=== PATIENT | female | born 1990 | race Caucasian/White ===

== ENCOUNTER 2019-12-30 16:48 | Inpatient (IN) | payer OTHER, SELFPAY ==
[2019-12-30] MEDS ORDERED: KETOROLAC 30 MG/ML INJ ONE (17:25)
[2019-12-30] MEDS ORDERED: ACETAMINOPHEN 500 MG TAB ONE (17:25)
[2019-12-30] MEDS ORDERED: MORPHINE 2 MG/ML SYR ONE (17:25)
[2019-12-30] MEDS ORDERED: ONDANSETRON 4 MG/2 ML VIAL ONE (17:25)
[2019-12-30] MEDS ORDERED: NA CHLORIDE 0.9% 2,000 ML ONE (17:26)
[2019-12-30 17:36] LABS: Absolute Lymphocytes (CBC) 1.8 K/uL (0.7-4.9); Basophils % 0.3 % (0-1.3); Hematocrit 35.1 % (36.0-45.0); Lymphocytes % 18.9 % (15.3-44.8); MPV 10.1 fL (7.6-11.3); RBC Red Blood Cell Count 4.51 M/uL (3.86-4.86)
[2019-12-30 17:51] LABS: ALT/SGPT 20 U/L (12-78); AST/SGOT 13 U/L (15-37); Albumin 4.1 g/dL (3.4-5.0); Alkaline Phosphatase 77 U/L (45-117); BUN Blood Urea Nitrogen 8 mg/dL (7-18); Bicarbonate 27 mmol/L (21-32); Bilirubin Direct < 0.1 mg/dL (0-0.2); Bilirubin Total 0.3 mg/dL (0.2-1.0); Glucose Level 96 mg/dL (74-106); Lipase 133 U/L (73-393); Potassium 3.5 mmol/L (3.5-5.1); Protein, Total 8.9 g/dL (6.4-8.2); Sodium Level 138 mmol/L (136-145)
--- NOTE | 2019-12-30 18:10 | RAD REPORT ---
EXAM DESCRIPTION: CT - Stone Protocol - 12/30/2019 5:40 pm CLINICAL HISTORY: Abd pain;Flank pain;Fever COMPARISON: CT ABD PELVIS W CONTRAST dated 12/03/2010 TECHNIQUE: Axial 5 mm thick images were obtained without oral or IV contrast. The [id number] span s the entirety of the system including uppermost abdomen and lung bases. All CT scans are performed using dose optimization technique as appropriate and may include automated exposure control or mA/KV adjustment according to patient size. FINDINGS: No hydronephrosis is present and no obstructing ureteral calculi. A 14 millimeter round lo w-density area lateral mid right kidney is believed to be interval enlargement of a small cyst seen i n 2010. No nonobstructing calyx calculi. The patient has moderately pronounced bilateral nephrocalcin osis. This is new from the 2010 comparison. This is not a clinically emergent finding. No suspicious renal masses. Isodense masses and pyelonephritis are not excluded on a stone protocol CT scan. No sig nificant adrenal finding. Urinary bladder is mostly contracted limiting detail. Normal size uterus is seen. IUD is in place appearing well positioned. There is general fullness to t he left ovary without a clearly defined ovarian solid or cystic mass. Right ovary is slightly less pr ominent in size. Imaged portions of the liver, spleen and pancreas show no suspicious findings on non-contrast imaging . No gallbladder or biliary tree abnormality identified. No suspicious bowel findings. Appendix is normal. No active GI process. No hernia, mass or bulky lymphadenopathy noted. No free air, free fluid or inflammatory stranding. No significant bony abnormality. IMPRESSION: No hydronephrosis, obstructing calculus or acute finding identifiable. Patient has moderate severity bilateral nephrocalcinosis that has developed since 2010. This is not o f acute significance. 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 Isodense masses and pyelonephritis are not excluded on stone protocol technique.
--- NOTE | 2019-12-30 18:17 | RAD REPORT ---
EXAM DESCRIPTION: RAD - Chest Single View - 12/30/2019 6:04 pm CLINICAL HISTORY: Abdominal distention;Cough COMPARISON: November 2007 TECHNIQUE: AP portable chest image was obtained 12/30/2019 6:04 pm . FINDINGS: Lungs are clear. Heart and vasculature are normal. No measurable pleural effusion and no p neumothorax. No acute bony abnormality seen. No acute aortic findings suspected. IMPRESSION: No acute cardiopulmonary process.
[2019-12-30] MEDS ORDERED: Levofloxacin500mg IV 500 MG/100 ML BAG IV ONE (18:28)
[2019-12-30] MEDS ORDERED: CEFTRIAXONE/SWI 1gm 1 GM/10 ML SYR ONE (18:28)
--- NOTE | 2019-12-30 18:28 | EDPHYS ---
Physician Documentation [facility] Name: Mary Jane Rodriguez Age: 29 yrs Sex: Female : 1990 Arrival Date: 12/30/2019 Time: 16:54 Bed 4 Private MD: ZACHARIAH Physician Shalom Will HPI: 12/29 17:06 This 29 yrs old Female presents to ER via Ambulatory with complaints of Back zeb Pain, Abdominal Pain. 17:06 The patient presents with pain that is acute, with no known mechanism of injury. The zeb symptoms are located in the low back, left low back and left mid back. Onset: The symptoms/episode began/occurred just prior to arrival, this morning. The pain radiates to the left low back and left mid back. Associated signs and symptoms: The patient has no apparent associated signs or symptoms. The problem was sustained from unknown cause. Modifying factors: The patient symptoms are alleviated by nothing, the patient symptoms are aggravated by any movement. Severity of symptoms: At their worst the symptoms were mild, moderate, in the emergency department the symptoms are unchanged. The patient has not experienced similar symptoms in the past. Historical: - Allergies: 16:58 No Known Allergies; sv - PMHx: 17:51 Kidney stones; sv - PSHx: 16:58 ; sv - Immunization history:: Adult Immunizations unknown. - Family history:: not pertinent. - Social history:: Smoking status: unknown. ROS: 17:06 Eyes: Negative for injury, pain, redness, and discharge, ENT: Negative for injury, zeb pain, and discharge, Neck: Negative for injury, pain, and swelling, Cardiovascular: Negative for chest pain, palpitations, and edema, Respiratory: Negative for shortness of breath, cough, wheezing, and pleuritic chest pain, : Negative for injury, bleeding, discharge, and swelling, MS/Extremity: Negative for injury and deformity, Skin: Negative for injury, rash, and discoloration, Neuro: Negative for headache, weakness, numbness, tingling, and seizure, Psych: Negative for depression, anxiety, suicide ideation, homicidal ideation, and hallucinations, Allergy/Immunology: Negative for hives, rash, and allergies, Endocrine: Negative for neck swelling, polydipsia, polyuria, polyphagia, and marked weight changes, Hematologic/Lymphatic: Negative for swollen nodes, abnormal bleeding, and unusual bruising. 17:06 Constitutional: Positive for body aches, fever. 17:06 Abdomen/GI: Positive for abdominal pain, nausea and vomiting, of the posterior aspect of left lateral abdomen, left upper quadrant and left lower quadrant. 17:06 Back: Positive for pain at rest, flank pain, on the left. Exam: 17:06 Constitutional: This is a well developed, well nourished patient who is awake, alert, zeb and in no acute distress. Head/Face: Normocephalic, atraumatic. Eyes: Pupils equal round and reactive to light, extra-ocular motions intact. Lids and lashes normal. Conjunctiva and sclera are non-icteric and not injected. Cornea within normal limits. Periorbital areas with no swelling, redness, or edema. ENT: Nares patent. No nasal discharge, no septal abnormalities noted. Tympanic membranes are normal and external auditory canals are clear. Oropharynx with no redness, swelling, or masses, exudates, or evidence of obstruction, uvula midline. Mucous membranes moist. Neck: Trachea midline, no thyromegaly or masses palpated, and no cervical lymphadenopathy. Supple, full range of motion without nuchal rigidity, or vertebral point tenderness. No Meningismus. Chest/axilla: Normal chest wall appearance and motion. Nontender with no deformity. No lesions are appreciated. Cardiovascular: Regular rate and rhythm with a normal S1 and S2. No gallops, murmurs, or rubs. Normal PMI, no JVD. No pulse deficits. Respiratory: Lungs have equal breath sounds bilaterally, clear to auscultation and percussion. No rales, rhonchi or wheezes noted. No increased work of breathing, no retractions or nasal flaring. Female : Normal external genitalia. Skin: Warm, dry with normal turgor. Normal color with no rashes, no lesions, and no evidence of cellulitis. MS/ Extremity: Pulses equal, no cyanosis. Neurovascular intact. Full, normal range of motion. Neuro: Awake and alert, GCS 15, oriented to person, place, time, and situation. Cranial nerves II-XII grossly intact. Motor strength 5/5 in all extremities. Sensory grossly intact. Cerebellar exam normal. Normal gait. 17:06 Abdomen/GI: Inspection: abdomen appears normal, Bowel sounds: normal, Palpation: mild abdominal tenderness, moderate abdominal tenderness, in the posterior aspect of left lateral abdomen, anterior aspect of left lateral abdomen, left upper quadrant and left lower quadrant, Liver: no appreciated palpable abnormalities, Hernia: not appreciated. Vital Signs: 16:58 BP 134 / 89; Pulse 126; Resp 20; Temp 101.1(TE); Pulse Ox 99% ; Weight 76.2 kg; Height sv 5 ft. 5 in. (165.10 cm); 18:10 BP 114 / 80; Pulse 110; Resp 18; Temp 99.4(O); Pulse Ox 99% on R/A; Pain 6/10; em 19:30 BP 118 / 76; Pulse 104; Resp 17; Pulse Ox 100% on R/A; rv 20:30 BP 116 / 81; Pulse 105; Resp 16; Temp 99; Pulse Ox 100% on R/A; rv 16:58 Body Mass Index 27.96 (76.20 kg, 165.10 cm) sv MDM: 17:02 Patient medically screened. [facility] 17:09 Differential diagnosis: Fatigue Scoliosis sprain, Ureterolithiasis. Data [facility] reviewed: vital signs, nurses notes, lab test result(s), radiologic studies, CT scan. Data interpreted: pvc monitor: rate is 126 beats/min, rhythm is regular, Pulse oximetry: is not applicable for this patient encounter. Counseling: I had a detailed discussion with the patient and/or guardian regarding: the historical points, exam findings, and any diagnostic results supporting the discharge/admit diagnosis, lab results, radiology results, the need for outpatient follow up. 12/29 17:06 Order name: Basic Metabolic Panel; Complete Time: 18:00 [facility] 12/29 17:06 Order name: CBC with Diff; Complete Time: 17:43 [facility] 12/29 17:06 Order name: Hepatic Function; Complete Time: 18:00 [facility] 12/29 17:06 Order name: Lipase; Complete Time: 18:00 [facility] 12/29 17:06 Order name: Urine Culture [facility] 12/29 17:11 Order name: Blood Culture Adult (2) [facility] 12/29 17:11 Order name: Lactate; Complete Time: 18:00 [facility] 12/29 17:24 Order name: Urine Dipstick--Ancillary (enter results) 12/29 17:24 Order name: Urine --Ancillary (enter results) 12/29 17:25 Order name: Urine Dipstick-Ancillary; Complete Time: 19:15 [facility] 12/29 17:25 Order name: Urine --Ancillary; Complete Time: 19:15 [facility] 12/29 19:47 Order name: Urine Microscopic Only 12/29 19:54 Order name: COVID-19 mw2 12/29 20:17 Order name: Urine Microscopic Only [facility] 12/29 17:06 Order name: IV Saline Lock; Complete Time: 17:33 [facility] 12/29 17:06 Order name: Labs collected and sent; Complete Time: 17:09 [facility] 12/29 17:06 Order name: Urine Dipstick-Ancillary (obtain specimen); Complete Time: 17:22 [facility] 12/29 17:06 Order name: Urine Test (obtain specimen); Complete Time: 17:22 [facility] 12/29 17:06 Order name: CT Stone Protocol; Complete Time: 19:15 [facility] 12/29 17:44 Order name: Chest Single View XRAY; Complete Time: 19:15 [facility] 12/29 18:23 Order name: CT Abd/Pelvis - IV Contrast Only [facility] 12/29 20:34 Order name: Lactate Sepsis 2 HR Follow-up EDMS Administered Medications: 17:20 Drug: Tylenol 1000 mg Route: PO; em 18:32 Follow up: Response: No adverse reaction; Temperature is decreased em 17:25 Drug: TORadol 30 mg Route: IVP; Site: left antecubital; em 17:25 Drug: NS 0.9% 1000 ml Route: IV; Rate: 1 bolus; Site: left antecubital; em 17:25 Drug: NS 0.9% 1000 ml Route: IV; Rate: 1 bolus; Site: left antecubital; em 17:27 Drug: Zofran (Ondansetron) 4 mg Route: IVP; Site: left antecubital; em 17:35 Drug: Rocephin 1 grams Route: IV; Rate: per protocol; Site: left antecubital; em 18:18 Drug: morphine 2 mg Route: IVP; Site: left antecubital; em 18:28 Drug: levofloxacin 500 mg Volume: 100 ml; Route: IVPB; Infused Over: 60 mins; Site: em left antecubital; Disposition: 12/30/19 18:27 Hospitalization ordered by Remy Neely for Inpatient Admission. Preliminary diagnosis are Fever, unspecified, Abdominal tenderness, Acute tubulo-interstitial nephritis - nephrocalcinosis. - Bed requested for Telemetry/MedSurg (Inpatient). - Status is Inpatient Admission. rv - Condition is Fair. - Problem is new. - Symptoms have improved. Signatures: Dispatcher [employer] Anh Meza RN RN sv Shalom Will MD MD cha Munoz, Edgar, RN RN em Garcia, Cindy, RN RN Micah Easton, JENNIE RN rv Corrections: (The following items were deleted from the chart) 17:51 16:58 PMHx: None; [facility] 19:58 18:27 Hospitalization Ordered by Remy Neely for Inpatient Admission. Preliminary diagnosis is Fever, unspecified; Abdominal tenderness; Acute tubulo-interstitial nephritis - nephrocalcinosis. Bed requested for Telemetry/MedSurg (Inpatient). Status is Inpatient Admission. Condition is Fair. Problem is new. Symptoms have improved. [facility] 20:34 19:58 12/30/2019 18:27 Hospitalization Ordered by Remy Neely for Inpatient rv Admission. Preliminary diagnosis is Fever, unspecified; Abdominal tenderness; Acute tubulo-interstitial nephritis - nephrocalcinosis. Bed requested for Telemetry/MedSurg (Inpatient). Status is Inpatient Admission. Condition is Fair. Problem is new. Symptoms have improved. cg
--- NOTE | 2019-12-30 18:28 | ER ---
Nurse's Notes [facility] Name: Mary Jane Rodriguez Age: 29 yrs Sex: Female : 1990 Arrival Date: 12/30/2019 Time: 16:54 Bed 4 Private MD: Diagnosis: Fever, unspecified;Abdominal tenderness;Acute tubulo-interstitial nephritis-nephrocalcinosis Presentation: 12/29 16:57 Chief complaint: Patient states: left low back/flank pain started a week ago, took pain sv meds and it went away. Today she started having the pain again with radiation to the LLQ and fever Tmax 101.4 "I think it's a kidney stone, I've had them before.". Coronavirus screen: Client denies travel out of the [place] in the last 14 days. At this time, the client does not indicate any symptoms associated with coronavirus-19. Ebola Screen: No symptoms or risks identified at this time. Risk Assessment: Do you want to hurt yourself or someone else? Patient reports no desire to harm self or others. Onset of symptoms was December 30, 2019. 16:57 Method Of Arrival: Ambulatory sv 16:57 Acuity: BAILEY 2 sv 16:58 Initial Sepsis Screen: Does the patient meet any 2 criteria? Temp <36.0*C (96.8*F)) or sv > 38.3*C (100.9*F). HR > 90 bpm. Yes Does the patient have a suspected source of infection? Yes: Other: fever. Triage Assessment: 16:57 General: Appears in no apparent distress. uncomfortable, Behavior is cooperative, sv anxious. Pain: Complains of pain in posterior aspect of left lateral abdomen and anterior aspect of left lateral abdomen Pain radiates to left lower quadrant. Neuro: Level of Consciousness is awake, alert, obeys commands, Oriented to person, place, time, situation, Gait is steady. Respiratory: Respiratory effort is even, unlabored. Historical: - Allergies: 16:58 No Known Allergies; sv - PMHx: 17:51 Kidney stones; sv - PSHx: 16:58 ; sv - Immunization history:: Adult Immunizations unknown. - Family history:: not pertinent. - Social history:: Smoking status: unknown. Screenin:15 Abuse screen: Denies threats or abuse. Nutritional screening: No deficits noted. em Tuberculosis screening: No symptoms or risk factors identified. Fall Risk None identified. Assessment: 17:03 Reassessment: CODE SEPSIS CALLED. hb 17:15 General: Appears in no apparent distress. comfortable, Behavior is calm, cooperative, em appropriate for age, Reports fever for 12-24 hours. Pain: Complains of pain in back Pain radiates to abdomen Pain Pain began 2-3 days ago. Neuro: Level of Consciousness is awake, alert, obeys commands, Oriented to person, place, time, situation, Appropriate for age. Cardiovascular: Capillary refill < 3 seconds Patient's skin is warm and dry. Respiratory: Airway is patent Respiratory effort is even, unlabored, Respiratory pattern is regular, symmetrical. GI: Reports nausea, Patient currently denies diarrhea, vomiting. : Denies burning with urination. Derm: Skin is intact, is healthy with good turgor, Skin is pink, warm \\T\\ dry. Musculoskeletal: Capillary refill < 3 seconds, Range of motion: intact in all extremities. 17:30 Reassessment: wants to hold off on morphine, will reassess pain in 15-30 minutes. em 18:10 Reassessment: Patient appears in no apparent distress at this time. Patient and/or em family updated on plan of care and expected duration. Pain level reassessed. Patient is alert, oriented x 3, equal unlabored respirations, skin warm/dry/pink. rates pain 6/10. 18:30 Reassessment: MATY Pickett at bedside discussing POC. em 20:30 Reassessment: PATEINT REFUSED COVID TEST. rv Vital Signs: 16:58 BP 134 / 89; Pulse 126; Resp 20; Temp 101.1(TE); Pulse Ox 99% ; Weight 76.2 kg; Height sv 5 ft. 5 in. (165.10 cm); 18:10 BP 114 / 80; Pulse 110; Resp 18; Temp 99.4(O); Pulse Ox 99% on R/A; Pain 6/10; em 19:30 BP 118 / 76; Pulse 104; Resp 17; Pulse Ox 100% on R/A; rv 20:30 BP 116 / 81; Pulse 105; Resp 16; Temp 99; Pulse Ox 100% on R/A; rv 16:58 Body Mass Index 27.96 (76.20 kg, 165.10 cm) sv ED Course: 16:54 Patient arrived in ED. mr 16:57 Arm band placed on. sv 16:58 Triage completed. sv 17:02 Shalom Will MD is Attending Physician. zeb 17:05 Liang Vila, RN is Primary Nurse. em 17:12 Radiology exam delayed due to test not completed at this time. vm2 17:15 Patient has correct armband on for positive identification. Placed in gown. Bed in low em position. Call light in reach. Adult w/ patient. Pulse ox on. NIBP on. 17:20 Urine collected: clean catch specimen, clear. sv 17:25 Initial lab(s) drawn, by me, sent to lab. Inserted saline lock: 20 gauge in left em antecubital area, using aseptic technique. Blood collected. 17:28 Urine --Ancillary (enter results) Sent. sv 17:28 Urine Dipstick--Ancillary (enter results) Sent. sv 17:40 CT Stone Protocol In Process Unspecified. EDMS 18:04 Chest Single View XRAY In Process Unspecified. EDMS 18:24 Marques Cameron DO is Hospitalizing Provider. zeb 18:24 Remy Neely is Hospitalizing Provider. zeb 18:43 CT Abd/Pelvis - IV Contrast Only In Process Unspecified. EDMS 19:34 Primary Nurse role handed off by Liang Vila, RN mw2 19:46 Micah Easton, JENNIE is Primary Nurse. rv 20:17 No provider procedures requiring assistance completed. Maintain EMS IV. Dressing rv intact. Good blood return noted. Site clean \\T\\ dry. 20:30 IV is patent, with fluids infusing freely, Patient admitted, IV remains in place. rv Administered Medications: 17:20 Drug: Tylenol 1000 mg Route: PO; em 18:32 Follow up: Response: No adverse reaction; Temperature is decreased em 17:25 Drug: TORadol 30 mg Route: IVP; Site: left antecubital; em 17:25 Drug: NS 0.9% 1000 ml Route: IV; Rate: 1 bolus; Site: left antecubital; em 17:25 Drug: NS 0.9% 1000 ml Route: IV; Rate: 1 bolus; Site: left antecubital; em 17:27 Drug: Zofran (Ondansetron) 4 mg Route: IVP; Site: left antecubital; em 17:35 Drug: Rocephin 1 grams Route: IV; Rate: per protocol; Site: left antecubital; em 18:18 Drug: morphine 2 mg Route: IVP; Site: left antecubital; em 18:28 Drug: levofloxacin 500 mg Volume: 100 ml; Route: IVPB; Infused Over: 60 mins; Site: em left antecubital; Outcome: 18:27 Decision to Hospitalize by Provider. [facility] 20:30 Admitted to Med/surg accompanied by tech, via wheelchair, room 206, Other SBAR Report rv called to SNEHA SCHNEIDER 20:30 Instructed on the need for admit. 20:30 Condition: good rv 20:30 Discharge instructions given to patient. rv 20:34 Patient left the ED. rv Signatures: Dispatcher [employer] Anh Meza RN RN Shalom Will MD MD cha Rivera, Liang Mott RN RN Awa Courtney RN RN Gavi Torres [facility] Cannon [facility] Micah Easton RN RN rv Corrections: (The following items were deleted from the chart) 17:00 16:57 Chief complaint: Patient states: left low back/flank pain started a week ago, sv took pain meds and it went away. Today she started having the pain again with radiation to the LLQ. 17: 16:57 Acuity: BAILEY 3 sv 17: 16:58 Initial Sepsis Screen: Does the patient meet any 2 criteria? No. Patient's sv initial sepsis screen is negative. Does the patient have a suspected source of infection? No. Patient's initial sepsis screen is negative. sv 17: 16:58 Pulse Ox 99%; Temp 101.1F Temporal; 76.2 kg; Height 5 ft. 5 in.; BMI: 27.9; sv sv 17:04 16:57 Chief complaint: Patient states: left low back/flank pain started a week ago, sv took pain meds and it went away. Today she started having the pain again with radiation to the LLQ and fever Tmax 101.4 sv 17: 16:58 Initial Sepsis Screen: Does the patient meet any 2 criteria? Temp <36.0*C sv (96.8*F)) or > 38.3*C (100.9*F). HR > 90 bpm. No. Patient's initial sepsis screen is negative. Does the patient have a suspected source of infection? Yes: Other: fever sv 17:51 16:58 PMHx: None; sv sv : 21:28 Admitted to Med/surg accompanied by tech, via wheelchair, room 206, Other SBAR rv Report called to SNEHA SCHNEIDER rv 21: Instructed on the need for admit, rv rv 21:28 Condition: good rv rv
[2019-12-30 18:50] LABS: Urine Blood TRACE (NEG); Urine Glucose NEGATIVE (NEG); Urine Protein NEGATIVE (NEG)
--- NOTE | 2019-12-30 19:15 | RAD REPORT ---
EXAM DESCRIPTION: CT - Abdomen Pelvis W Contrast - 12/30/2019 6:44 pm CLINICAL HISTORY: ABD PAIN COMPARISON: No comparisons TECHNIQUE: Biphasic, helical CT imaging of the abdomen and pelvis was performed following 100 ml non -ionic IV contrast. No oral contrast administered. All CT scans are performed using dose optimization technique as appropriate and may include automated exposure control or mA/KV adjustment according to patient size. FINDINGS: No suspicious findings in the lung bases. The liver, spleen, and pancreas show no suspicious findings. Gallbladder and biliary tree are also wi thout suspicious finding. Decreased enhancement is present in the posterior mid to upper pole left kidney. No similar finding o n the right. A 19 millimeter right renal cyst is present mid right kidney. No hydronephrosis. No obst ructing or nonobstructing calculi. No solid mass lesion identifiable. No bladder abnormalities. No ad renal abnormalities. No acute uterine finding. IUD is in place. Fullness is present in the left ovary relative to the right. This is probably due to the presence of 1 or more cysts. A solid mass or enha ncing mass of the left ovary is not confirmed. No dilated bowel loops or bowel wall thickening. Appendix is normal. No free air, free fluid or infla mmatory stranding. No hernia, mass or bulky lymphadenopathy. No suspicious bony findings. IMPRESSION: Mild left-sided acute pyelonephritis. No hydronephrosis, obstructing calculus or other acute GI finding. Generalized fullness of the left ovary relative to the right. This may be due to 1 or more cysts. Sig nificant left ovarian process is unlikely.
[2019-12-30 20:17] LABS: Urine Bacteria <20 /HPF (<20); Urine Culture Reflex Order NOT NEEDED; Urine Mucus 1+ /HPF (NONE SEEN); Urine RBC <5 /HPF (NONE SEEN)
[2019-12-30 20:51] VITALS: BMI 28.6
--- NOTE | 2019-12-30 20:57 | P.HP ---
Certification for Inpatient Patient admitted to: Inpatient With expected LOS: >2 Midnights Patient will require the following post-hospital care: None Practitioner: I am a practitioner with admitting privileges, knowledge of patient current condition, hospital course, and medical plan of care. Services: Services provided to patient in accordance with Admission requirements found in Title 42 Section 412.3 of the Code of Federal Regulations <JasminePiyush torres - Last Filed: 12/30/19 20:55> Patient History Date of Service: 12/30/19 Primary Care Provider: None Reason for admission: Pyelonephritis History of Present Illness: 29-year-old female with history kidneys stones presents emergency department with left abdomen/flank pain and fever. Patient reports that last week she had left-sided back, flank pain that went on for approximately 2 days and then resolved, she states that this pain was similar to when she had kidney stone in the past. Over the course of the last 2 days she developed new left flank pain and began having chills, started with fever yesterday. Patient was evaluated in the emergency department, labs hemoglobin 11.1, hematocrit 35.1, white blood cell count 9.5 lactic acid 2.2 but decreased to 0.7 after fluids, urine microscopic shows 5-10 white blood cells but also 5-10 squamous epithelial cells. Trace blood and trace leukocytes on urine dip. Patient had CT abdomen pelvis both with and without contrast which showed moderate severity bilateral nephrocalcinosis in addition to a 14 mm round low density area lateral to the mid right kidney believed to be an interval enlargement of a small cyst that was seen in 2010. On CT with contrast patient noted to have mild left-sided acute pyelonephritis. No hydronephrosis, obstructing cactus or other acute GI findings noted. ED provider wishes to admit patient for further evaluation and management peer When I saw the patient in the emergency department she is awake, alert, oriented x3. Patient complaining of left-sided flank and abdominal pain. Mild lower abdominal tenderness, no CVA tenderness noted. - Past Medical/Surgical History Has patient received pneumonia vaccine in the past: No Diabetic: No -: kidney stones -: x3 Psychosocial/ Personal History: Patient lives with the family - Family History Mother -: Hypertension - Social History Smoking Status: Never smoker Alcohol use: Yes CD- Drugs: No Caffeine use: No Place of Residence: Home <Piyush Reina - Last Filed: 12/30/19 20:55> Date of Service: 12/31/19 <brittney mooney - Last Filed: 12/31/19 17:02> Allergies No Known Allergies Allergy (Verified 12/30/19 20:38) Home Medications: NK [No Home Meds] 12/30/19 Review of Systems 10-point ROS is otherwise unremarkable Gastrointestinal: Nausea, Abdominal Pain, Other (Flank pain, back pain), As per HPI <Piyush Reina - Last Filed: 12/30/19 20:55> Physical Examination - Vital Signs Temperature: 97.4 F Blood Pressure: 112/64 Pulse: 87 Respirations: 16 Pulse Ox (%): 97 - Physical Exam General: Alert, In no apparent distress HEENT: Atraumatic, PERRLA, Mucous membr. moist/pink Neck: Supple, 2+ carotid pulse no bruit, No LAD Respiratory: Clear to auscultation bilaterally, Normal air movement Cardiovascular: Regular rate/rhythm, Normal S1 S2 Gastrointestinal: Normal bowel sounds, Tenderness (Mild lower abdominal tenderness, no CVA tenderness noted.) Musculoskeletal: No tenderness Integumentary: No rashes Neurological: Normal gait, Normal speech, Normal strength at 5/5 x4 extr, Normal tone, Normal affect - Studies Laboratory Data (last 24 hrs) 12/30/19 17:23: WBC 9.5, Hgb 11.1 L, Hct 35.1 L, Plt Count 330 12/30/19 17:23: Sodium 138, Potassium 3.5, BUN 8, Creatinine 0.92, Glucose 96, Total Bilirubin 0.3, AST 13 L, ALT 20, Alkaline Phosphatase 77, Lipase 133 <Piyush Reina - Last Filed: 12/30/19 20:55> - Studies Laboratory Data (last 24 hrs) 12/30/19 17:23: WBC 9.5, Hgb 11.1 L, Hct 35.1 L, Plt Count 330 12/30/19 17:23: Sodium 138, Potassium 3.5, BUN 8, Creatinine 0.92, Glucose 96, Total Bilirubin 0.3, AST 13 L, ALT 20, Alkaline Phosphatase 77, Lipase 133 <brittney mooney - Last Filed: 12/31/19 17:02> Assessment and Plan - Plan Assessment Left-sided acute pyelonephritis Plan Left-sided acute pyelonephritis: Continue with IV Rocephin, p.r.n. pain and nausea medications. Blood and urine cultures obtained. Clear liquids at this time, advanced as tolerated. DVT prophylaxis Lovenox 40 mg subcutaneous once daily. Discharge Plan: Home Plan to discharge in: 24 Hours - Advance Directives Does patient have a Living Will: No Does patient have a Durable POA for Healthcare: No - Code Status/Comfort Care Code Status Assessed: Yes (Full code) Critical Care: No Time Spent Managing Pts Care (In Minutes): 55 <Piyush Reina - Last Filed: 12/30/19 20:55> - Problems (Diagnosis) (1) Acute pyelonephritis Current Visit: Yes Status: Acute (2) Nephrocalcinosis Current Visit: Yes Status: Acute Physician Review: Patient Assessed, Agree with Above Assessment and Plan Physician Review Additional Text: Acute pyelonephritis. Nephrocalcinosis. IV Rocephin. Supportive measures-IV hydration and pain management as needed. Follow cultures. <brittney mooney - Last Filed: 12/31/19 17:02>
[2019-12-30] MEDS ORDERED: PROMETHAZINE INJ 25 MG/ML AMP IV PRN (21:12)
[2019-12-30] MEDS ORDERED: HYDROCODONE/APAP 7.5/325 MG TAB PO PRN (21:12)
[2019-12-30] MEDS ORDERED: ONDANSETRON 4 MG/2 ML VIAL IV PRN (21:12)
[2019-12-30] MEDS ORDERED: MORPHINE 2 MG/ML SYR IV PRN (21:12)
[2019-12-30] MEDS: NA CHLORIDE 0.9% 1,000 ML IV SCH (21:37)
[2019-12-31] MEDS: NA CHLORIDE 0.9% 1,000 ML IV SCH ×3 (03:27→17:01)
[2019-12-31 05:16] LABS: ALT/SGPT 12 U/L (12-78); AST/SGOT 9 U/L (15-37); Albumin 2.7 g/dL (3.4-5.0); Alkaline Phosphatase 51 U/L (45-117); BUN Blood Urea Nitrogen 7 mg/dL (7-18); Bicarbonate 28 mmol/L (21-32); Bilirubin Total 0.3 mg/dL (0.2-1.0); Glucose Level 86 mg/dL (74-106); Magnesium 2.1 mg/dL (1.8-2.4); Protein, Total 6.1 g/dL (6.4-8.2); Sodium Level 144 mmol/L (136-145)
[2019-12-31 06:00] LABS: Absolute Lymphocytes (CBC) 1.4 K/uL (0.7-4.9); Basophils % 0.4 % (0-1.3); Hematocrit 26.2 % (36.0-45.0); Lymphocytes % 28.6 % (15.3-44.8); MPV 10.1 fL (7.6-11.3); RBC Red Blood Cell Count 3.36 M/uL (3.86-4.86)
[2019-12-31] MEDS: ACETAMINOPHEN 500 MG TAB PO PRN ×2 (08:27→20:47)
[2019-12-31] MEDS: ENOXAPARIN 40 MG/0.4 ML SQ SCH (08:28)
[2019-12-31] MEDS ORDERED: CEFTRIAXONE 1 GM/NS 50 ML 1 GM/50 ML BAG IV SCH (09:00)
[2019-12-31 10:04] VITALS: O2SAT 100
--- NOTE | 2019-12-31 14:40 | P.PN ---
Subjective Date of Service: 12/31/19 Primary Care Provider: None Chief Complaint: Pyelonephritis Patient complaining of lower back pain. Urine culture is growing Gram negative rods. She has been afebrile. Blood pressure is soft and patient is borderline hypotensive. Physical Examination - Vital Signs Temperature: 97.8 F Blood Pressure: 90/62 Pulse: 75 Respirations: 16 Pulse Ox (%): 100 - Physical Exam General: Alert, In no apparent distress, Oriented x3 HEENT: Mucous membr. moist/pink Neck: Supple, JVD not distended Respiratory: Clear to auscultation bilaterally, Normal air movement Cardiovascular: No edema, Regular rate/rhythm, Normal S1 S2 Capillary refill: <2 Seconds Gastrointestinal: Normal bowel sounds, Soft and benign, Non-distended Musculoskeletal: Tenderness (Lower back.) Integumentary: No rashes, No erythema Neurological: Other (Nonfocal.) - Studies Laboratory Data (last 24 hrs) 12/30/19 17:23: WBC 9.5, Hgb 11.1 L, Hct 35.1 L, Plt Count 330 12/30/19 17:23: Sodium 138, Potassium 3.5, BUN 8, Creatinine 0.92, Glucose 96, Total Bilirubin 0.3, AST 13 L, ALT 20, Alkaline Phosphatase 77, Lipase 133 Assessment And Plan - Current Problems (Diagnosis) (1) Acute pyelonephritis Current Visit: Yes Status: Acute (2) Nephrocalcinosis Current Visit: Yes Status: Acute - Plan Continue IV Rocephin. IV hydration Pain management as needed. Follow urine culture for organism identification and sensitivity. Advanced diet as tolerated.
[2019-12-31] MEDS ORDERED: CEFTRIAXONE/SWI 1gm 1 GM/10 ML SYR IV SCH (18:00)
[2020-01-01] MEDS: NA CHLORIDE 0.9% 1,000 ML IV SCH ×2 (01:34→06:02)
[2020-01-01] MEDS ORDERED: CODEINE 30MG/APAP 300MG TAB PO PRN (02:12)
[2020-01-01 04:27] LABS: Absolute Lymphocytes (CBC) 1.6 K/uL (0.7-4.9); Basophils % 0.5 % (0-1.3); Hematocrit 27.6 % (36.0-45.0); Lymphocytes % 29.8 % (15.3-44.8); MPV 10.6 fL (7.6-11.3); RBC Red Blood Cell Count 3.54 M/uL (3.86-4.86)
[2020-01-01 05:34] LABS: ALT/SGPT 12 U/L (12-78); AST/SGOT 9 U/L (15-37); Alkaline Phosphatase 50 U/L (45-117); BUN Blood Urea Nitrogen 6 mg/dL (7-18); Bicarbonate 28 mmol/L (21-32); Bilirubin Total 0.2 mg/dL (0.2-1.0); Glucose Level 86 mg/dL (74-106); Magnesium 2.2 mg/dL (1.8-2.4); Potassium 3.7 mmol/L (3.5-5.1); Protein, Total 6.6 g/dL (6.4-8.2); Sodium Level 144 mmol/L (136-145)
[2020-01-01] MEDS ORDERED: POTASSIUM CL SA 10 MEQ TAB PO ONE (05:35)
[2020-01-01] MEDS: ENOXAPARIN 40 MG/0.4 ML SQ SCH (07:39)
[2020-01-01 08:44] VITALS: BP 128/74; TEMP 97.6
--- NOTE | 2020-01-01 08:46 | P.DS ---
Admission Date: 12/30/19 Discharge Date: 01/01/20 Primary Care Provider: None Disposition: ROUTINE DISCHARGE Discharge Condition: FAIR Reason for Admission: Pyelonephritis - Problems (1) Acute pyelonephritis Status: Acute (2) Nephrocalcinosis Status: Acute Brief History of Present Illness: 29 year old woman with a history nephrocalcinosis presented to the emergency department with a complaint of left flank pain with associated fever and chills. UA suggested some evidence of UTI. CT abdomen and pelvis done demonstrated bilateral nephrocalcinosis, mild left pyelonephritis and right renal cyst. It also reported Patient had no leukocytosis or fever. She was hospitalized for further management Hospital Course: Patient admitted to the medical floor and treated with IV Rocephin. Urine culture grew pansensitive E. coli. Patient's symptoms resolved rapidly than anticipated. Today patient denies any symptoms. She has been afebrile, has no leukocytosis, tolerating her meals. Noted she has anemia. Patient reports irregular and heavy menstrual bleed which could explain the microcytic anemia. She is prescribed ciprofloxacin to continue treatment for the complicated UTI. She is also prescribed iron supplement pain and advised to follow up with a scale mechanic regarding her menstrual bleed and also a PCP will monitor her nephrocalcinosis. Vital Signs/Physical Exam: Temp Pulse Resp BP Pulse Ox 97.6 F 91 H 20 128/74 98 01/01/20 08:00 01/01/20 08:00 01/01/20 08:00 01/01/20 08:00 01/01/20 08:00 General: Alert, In no apparent distress, Oriented x3 HEENT: Mucous membr. moist/pink Neck: Supple, JVD not distended Respiratory: Clear to auscultation bilaterally, Normal air movement Cardiovascular: No edema, Regular rate/rhythm, Normal S1 S2 Gastrointestinal: Normal bowel sounds, Soft and benign, No tenderness Musculoskeletal: No swelling, No erythema Integumentary: No rashes Neurological: Normal strength at 5/5 x4 extr Laboratory Data at Discharge: WBC 5.4 K/uL (4.3-10.9) 01/01/20 03:30 Hgb 8.7 g/dL (12.0-15.0) L 01/01/20 03:30 Hct 27.6 % (36.0-45.0) L 01/01/20 03:30 Plt Count 228 K/uL (152-406) 01/01/20 03:30 Sodium 144 mmol/L (136-145) 01/01/20 03:30 Potassium 3.7 mmol/L (3.5-5.1) 01/01/20 03:30 BUN 6 mg/dL (7-18) L 01/01/20 03:30 Creatinine 0.64 mg/dL (0.55-1.3) 01/01/20 03:30 Glucose 86 mg/dL (74-106) 01/01/20 03:30 Magnesium 2.2 mg/dL (1.8-2.4) 01/01/20 03:30 Total Bilirubin 0.2 mg/dL (0.2-1.0) 01/01/20 03:30 AST 9 U/L (15-37) L 01/01/20 03:30 ALT 12 U/L (12-78) 01/01/20 03:30 Alkaline Phosphatase 50 U/L (45-117) 01/01/20 03:30 Lipase 133 U/L (73-393) 12/30/19 17:23 Home Medications: Ciprofloxacin HCl [Cipro 500 MG Tablet] 500 mg PO BID #14 tab 01/01/20 Ferrous Gluconate 324 mg PO BID #60 tablet 01/01/20 New Medications: Ciprofloxacin HCl [Cipro 500 MG Tablet] 500 mg PO BID #14 tab Ferrous Gluconate 324 mg PO BID #60 tablet Diet: Regular Activity: Ad ame Followup: NONE,NONE [Primary Care Provider] - 1-2 Weeks
== END 2020-01-01 09:40 | disposition home or self-care (01) | DRG 690 ==
LOC: ER 16:48 → ERHOLD 19:45 → 2ND 20:17
PROVIDERS: ADMIT Internal Medicine; ATTEND Internal Medicine
DX: N10 Acute pyelonephritis (principal); E83.59 Other disorders of calcium metabolism; N29 Other disorders of kidney and ureter in diseases classified elsewhere; N28.1 Cyst of kidney, acquired; D50.9 Iron deficiency anemia, unspecified; B96.20 Unspecified Escherichia coli [E. coli] as the cause of diseases classified elsewhere; Z79.899 Other long term (current) drug therapy
CPT/HCPCS: 36415; 71045; 74176; 74177; 76377; 80048; 80053; 80076; 81003; 81015; 81025; 83605; 83690; 83735; 85025; 87040; 87086; 87088; 96374; 96375; 99285; J0696; J1650; J2270; J2405; J7030; Q9967

== ENCOUNTER 2020-06-09 19:42 | Emergency (ER) | payer SELFPAY ==
--- OUTSIDE RECORDS SUMMARY | 2020-06-09 19:45 | XMS REPORT | Continuity of Care Document ---
:1990 Author Organization [facility] t Address [address] [place] [address] Care Team Providers Name Role Phone Fletcher PATEL Attending Clinician Problems This patient has no known problems. Allergies, Adverse Reactions, Alerts This patient has no known allergies or adverse reactions. Medications This patient has no known medications. Procedures This patient has no known procedures. Encounters Start End Encounter Admission Attending Care Care Encounter Source Date/Time Date/Time Type Type Clinicians Facility Department ID 2020-04-16 2020-04-16 Office SABA Bynum [id number] 10:38:02 11:34:29 Visit Mae AYALA [id number] [place] [id number] [place] [phone] [facility] Results This patient has no known results.
[2020-06-09] MEDS ORDERED: ACETAMINOPHEN 500 MG TAB ONE (20:16)
[2020-06-09 21:30] LABS: Absolute Lymphocytes (CBC) 1.5 K/uL (0.7-4.9); Basophils % 0.5 % (0-1.3); Hematocrit 36.2 % (36.0-45.0); MPV 10.6 fL (7.6-11.3); RBC Red Blood Cell Count 4.04 M/uL (3.86-4.86)
[2020-06-09 21:39] LABS: Urine Blood Trace-intact (Negative); Urine Glucose Negative (Negative); Urine Protein 1+ (Negative)
[2020-06-09 21:49] LABS: ALT/SGPT 17 U/L (12-78); AST/SGOT 10 U/L (15-37); Alkaline Phosphatase 68 U/L (45-117); BUN Blood Urea Nitrogen 7 mg/dL (7-18); Bicarbonate 24 mmol/L (21-32); Bilirubin Direct 0.2 mg/dL (0-0.2); Bilirubin Total 0.9 mg/dL (0.2-1.0); Glucose Level 91 mg/dL (74-106); Lipase 70 U/L (73-393); Potassium 3.4 mmol/L (3.5-5.1); Protein, Total 8.2 g/dL (6.4-8.2); Sodium Level 136 mmol/L (136-145)
[2020-06-09] MEDS ORDERED: KETOROLAC 30 MG/ML INJ ONE (23:53)
--- NOTE | 2020-06-09 23:53 | ER ---
Nurse's Notes [facility] Name: Mary Jane Rodriguez Age: 30 yrs Sex: Female : 1990 Arrival Date: 06/09/2020 Time: 19:45 Bed 19 Private MD: Diagnosis: Lower abdominal pain, unspecified;Urinary tract infection, site not specified Presentation: 06/09 19:50 Chief complaint: Patient states: Suprapubic pain since yesterday, fever. Denies N/V/D. ca1 Denies urinary S/S. HX of PCOS, cyst on kidneys. Coronavirus screen: Client denies travel out of the [place] in the last 14 days. fever, Client presents with at least one sign or symptom that may indicate coronavirus-19. Standard/surgical mask placed on the client. Provider contacted for isolation considerations. Ebola Screen: Patient negative for fever greater than or equal to 101.5 degrees Fahrenheit, and additional compatible Ebola Virus Disease symptoms Patient denies exposure to infectious person. Patient denies travel to an Ebola-affected area in the 21 days before illness onset. No symptoms or risks identified at this time. Initial Sepsis Screen: Does the patient meet any 2 criteria? No. Patient's initial sepsis screen is negative. Does the patient have a suspected source of infection? No. Patient's initial sepsis screen is negative. Risk Assessment: Do you want to hurt yourself or someone else? Patient reports no desire to harm self or others. Onset of symptoms was June 09, 2020. 19:50 Method Of Arrival: Ambulatory ca1 19:50 Acuity: [place] 2 ca1 [place] GUIDE: 19:54 [facility] 05/25/2020 ca1 Historical: - Allergies: 19:54 No Known Allergies; ca1 - PMHx: 19:54 Kidney stones; Cyst on kidneys; PCOS; ca1 - PSHx: 19:54 ; ca1 - Immunization history:: Client reports having NOT received the Covid vaccine. Flu vaccine is not up to date. - Social history:: Smoking status: Patient/guardian denies using tobacco, the patient reports quitting approximately 10 years ago. Screenin:50 Abuse screen: Denies threats or abuse. Nutritional screening: No deficits noted. jb4 Tuberculosis screening: No symptoms or risk factors identified. Fall Risk None identified. Assessment: 20:50 General: Appears in no apparent distress. uncomfortable, Behavior is calm, cooperative, jb4 appropriate for age. Pain: Complains of pain in abdomen Pain does not radiate. Pain currently is 8 out of 10 on a pain scale. Neuro: Level of Consciousness is awake, alert, obeys commands, Oriented to person, place, time, situation. Cardiovascular: Patient's skin is warm and dry. Respiratory: Airway is patent Respiratory effort is even, unlabored, Respiratory pattern is regular, symmetrical. GI: Abdomen is flat, non-distended, Bowel sounds present X 4 quads. Abd is soft X 4 quads Abdomen is tender to palpation X 4 quads. : No signs and/or symptoms were reported regarding the genitourinary system. EENT: No signs and/or symptoms were reported regarding the EENT system. Derm: Skin is intact, Skin is pink, warm \T\ dry. Musculoskeletal: Circulation, motion, and sensation intact. Range of motion: intact in all extremities. 22:00 Reassessment: Patient appears in no apparent distress at this time. Patient and/or jb4 family updated on plan of care and expected duration. Pain level reassessed. Patient is alert, oriented x 3, equal unlabored respirations, skin warm/dry/pink. PT reports pain has decreased to 4/10 Patient states feeling better. 23:00 Reassessment: Patient appears in no apparent distress at this time. Patient and/or jb4 family updated on plan of care and expected duration. Pain level reassessed. Patient is alert, oriented x 3, equal unlabored respirations, skin warm/dry/pink. 06/10 00:19 Reassessment: Patient appears in no apparent distress at this time. Patient and/or jb4 family updated on plan of care and expected duration. Pain level reassessed. Patient is alert, oriented x 3, equal unlabored respirations, skin warm/dry/pink. Vital Signs: 06/09 19:50 BP 124 / 85; Pulse 140; Resp 18 S; Temp 100.3(O); Pulse Ox 99% on R/A; Weight 71.67 kg ca1 (R); Height 5 ft. 5 in. (165.10 cm) (R); Pain 8/10; 21:30 BP 124 / 81; Pulse 105; Resp 18; Pulse Ox 97% on R/A; jb4 21:52 Temp 98.2(O); jb4 23:15 BP 112 / 79; Pulse 102; Resp 16; Pulse Ox 98% on R/A; jb4 06/10 00:00 BP 109 / 76; Pulse 88; Resp 16; Pulse Ox 97% on R/A; jb4 06/09 19:50 Body Mass Index 26.29 (71.67 kg, 165.10 cm) ca1 ED Course: 06/09 19:45 Patient arrived in ED. bp1 19:53 Triage completed. ca1 19:54 Arm band placed on right wrist. ca1 20:50 Patient has correct armband on for positive identification. Bed in low position. Call jb4 light in reach. Side rails up X 1. Pulse ox on. NIBP on. 20:56 Ant Pate, JENNIE is Primary Nurse. jb4 20:57 Artemio Centeno PA is PHCP. jm 20:57 Shalom Will MD is Attending Physician. jmm 21:05 Inserted saline lock: 20 gauge in right forearm, using aseptic technique. Blood ds4 collected. 21:50 Radiology exam delayed due to test not completed at this time. vm2 22:10 US Transvaginal Study (Probe) In Process Unspecified. EDMS 22:52 CT Abd/Pelvis - IV Contrast Only In Process Unspecified. EDMS 06/10 00:21 No provider procedures requiring assistance completed. IV discontinued, intact, jb4 bleeding controlled, No redness/swelling at site. Pressure dressing applied. Administered Medications: 06/09 19:59 Drug: Tylenol 1000 mg Route: PO; ca1 21:52 Follow up: Response: No adverse reaction; Marked relief of symptoms; Temperature is jb4 decreased 23:50 Drug: Ketorolac 30 mg Route: IVP; Site: right antecubital; jb4 06/10 00:09 Follow up: Response: No adverse reaction; Marked relief of symptoms jb4 06/09 23:51 Drug: Rocephin (cefTRIAXone) 1 grams Route: IV; Rate: calculated rate; Site: right jb4 antecubital; 06/10 00:09 Follow up: Response: No adverse reaction; IV Status: Completed infusion; IV Intake: [id number] Intake: 00:09 IV: 10ml; Total: 10ml. jb4 Outcome: 06/09 23:52 Discharge ordered by MD. sandy 06/10 00:21 Discharged to home ambulatory. jb4 Condition: stable Discharge instructions given to patient, Instructed on discharge instructions, follow up and referral plans. medication usage, Demonstrated understanding of instructions, follow-up care, medications, Prescriptions given X 3. 00:22 Patient left the ED. jb4 Signatures: Dispatcher [employer] EDMS Artemio Centeno PA PA jmm Swanson, Donovan ds4 Ant Pate RN RN jb4 Gavi Torres 2 Krysta Reaves, RN RN ca1 Nat Hurst bp1 Corrections: (The following items were deleted from the chart) 06/09 21:52 21:30 BP 124 / 81; Pulse 105bpm; Resp 48bpm; Pulse Ox 97% RA; jb4 jb4
--- NOTE | 2020-06-09 23:53 | EDPHYS ---
Physician Documentation [facility] Name: Mary Jane Rodriguez Age: 30 yrs Sex: Female : 1990 Arrival Date: 06/09/2020 Time: 19:45 Bed 19 Private MD: Shalom Harding HPI: 06/09 21:33 This 30 yrs old Female presents to ER via Ambulatory with complaints of jmm Abdominal Pain, Fever. 21:33 The patient presents with abdominal pain. Onset: The symptoms/episode began/occurred jmm gradually, 1 day(s) ago. The symptoms do not radiate. Associated signs and symptoms: Pertinent negatives: nausea and vomiting, diarrhea. The symptoms are described as achy. Modifying factors: The symptoms are alleviated by nothing, the symptoms are aggravated by nothing. Patient complains of lower abdominal/[pelvic pain beginning 1 day ago with fever, denies abnormal vaginal discharge. 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 Flu vaccine is not up to date. - Social history:: Smoking status: Patient/guardian denies using tobacco, the patient reports quitting approximately 10 years ago. ROS: 21:33 Constitutional: Negative for fever, chills, and weight loss, Cardiovascular: Negative jmm for chest pain, palpitations, and edema, Respiratory: Negative for shortness of breath, cough, wheezing, and pleuritic chest pain. 21:33 Abdomen/GI: Positive for abdominal pain. 21:33 All other systems are negative. Exam: 21:33 Constitutional: This is a well developed, well nourished patient who is awake, alert, jmm and in no acute distress. Head/Face: atraumatic. Eyes: EOMI, no conjunctival erythema appreciated ENT: Moist Mucus Membranes Neck: Trachea midline, Supple Chest/axilla: Normal chest wall appearance and motion. Cardiovascular: Regular rate and rhythm. No edema appreciated Respiratory: Normal respirations, no respiratory distress appreciated 21:33 Back: Normal ROM Skin: General appearance color normal MS/ Extremity: Moves all extremities, no obvious deformities appreciated, no edema noted to the lower extremities Neuro: Awake and alert, normal gait 21:33 Abdomen/GI: Inspection: abdomen appears normal, Bowel sounds: normal, Palpation: soft, mild abdominal tenderness, in the right lower quadrant and left lower quadrant. Vital Signs: 19:50 BP 124 / 85; Pulse 140; Resp 18 S; Temp 100.3(O); Pulse Ox 99% on R/A; Weight 71.67 kg ca1 (R); Height 5 ft. 5 in. (165.10 cm) (R); Pain 8/10; 21:30 BP 124 / 81; Pulse 105; Resp 18; Pulse Ox 97% on R/A; jb4 21:52 Temp 98.2(O); jb4 23:15 BP 112 / 79; Pulse 102; Resp 16; Pulse Ox 98% on R/A; jb4 06/10 00:00 BP 109 / 76; Pulse 88; Resp 16; Pulse Ox 97% on R/A; jb4 06/09 19:50 Body Mass Index 26.29 (71.67 kg, 165.10 cm) ca1 MDM: 06/09 21:01 Patient medically screened. zeb 23:48 Data reviewed: vital signs, nurses notes. Counseling: I had a detailed discussion with vika the patient and/or guardian regarding: the historical points, exam findings, and any diagnostic results supporting the discharge/admit diagnosis, lab results, radiology results, the need for outpatient follow up, to return to the emergency department if symptoms worsen or persist or if there are any questions or concerns that arise at home. ED course: Imaging studies negative for an acute process. Most likely cystitis. patient is advised to follow up with pcp and otherwise given strict return precautions. patient understood and agrees with the plan of care. . 06/09 21:06 Order name: Basic Metabolic Panel; Complete Time: 21:[address] [facility] 06/09 21:06 Order name: CBC with Diff; Complete Time: 21:[address] [facility] 06/09 21:06 Order name: Hepatic Function; Complete Time: 21:[address] [facility] 06/09 21:06 Order name: Lipase; Complete Time: 21:[address] [facility] 06/09 21:38 Order name: Urine Dipstick-Ancillary; Complete Time: 21:51 [facility] 06/09 22:19 Order name: Urine --Ancillary (enter results); Complete Time: 22:39 [facility] 06/09 21:06 Order name: IV Saline Lock; Complete Time: 21:[address] [facility] 06/09 21:06 Order name: Labs collected and sent; Complete Time: 21:[address] [facility] 06/09 21:06 Order name: Urine Dipstick-Ancillary (obtain specimen); Complete Time: 21:[address] [facility] 06/09 21:07 Order name: CT Abd/Pelvis - IV Contrast Only [facility] 06/09 21:07 Order name: US Transvaginal Study (Probe) [facility] 06/09 21:06 Order name: Urine Test (obtain specimen); Complete Time: 21:[address] [facility] Administered Medications: 19:59 Drug: Tylenol 1000 mg Route: PO; ca1 21:52 Follow up: Response: No adverse reaction; Marked relief of symptoms; Temperature is jb4 decreased 23:50 Drug: Ketorolac 30 mg Route: IVP; Site: right antecubital; jb4 06/10 00:09 Follow up: Response: No adverse reaction; Marked relief of symptoms [facility] 06/09 23:51 Drug: Rocephin (cefTRIAXone) 1 grams Route: IV; Rate: calculated rate; Site: right jb4 antecubital; 06/10 00:09 Follow up: Response: No adverse reaction; IV Status: Completed infusion; IV Intake: [id number] Disposition: 06:42 Co-signature as Attending Physician, Shalom Will MD I agree with the assessment and zeb plan of care. Disposition: 06/09/20 23:52 Discharged to Home. Impression: Lower abdominal pain, unspecified, Urinary tract infection, site not specified. - Condition is Stable. - Discharge Instructions: Abdominal Pain, Adult, Urinary Tract Infection, Adult. - Prescriptions for Zofran ODT 4 mg Oral tablet,disintegrating - place 1 tablet by TRANSLINGUAL route every 4-6 hours; 20 tablet. Ultracet 37.5- 325 mg Oral Tablet - take 1 tablet by ORAL route every 6 hours - for up to 5 days; do not exceed 8 tablets per day.; 20 tablet. cefpodoxime 200 mg Oral Tablet - take 1 tablet by ORAL route every 12 hours for 10 days with food; 20 tablet. - Medication Reconciliation Form, Thank You Letter, Antibiotic Education, Prescription Opioid Use, Work release form form. - Follow up: Private Physician; When: 2 - 3 days; Reason: Recheck today's complaints, Continuance of care, Re-evaluation by your physician. Signatures: Dispatcher [employer] EDShalom Pang MD MD cha Mickail, Joel, PA PA jmm Bryson, James, JENNIE RN jb4 Krysta Reaves RN RN ca1 Corrections: (The following items were deleted from the chart) 00:22 06/09 23:52 06/09/2020 23:52 Discharged to Home. Impression: Lower abdominal pain, jb4 unspecified; Urinary tract infection, site not specified. Condition is Stable. Forms are Medication Reconciliation Form, Thank You Letter, Antibiotic Education, Prescription Opioid Use. Follow up: Private Physician; When: 2 - 3 days; Reason: Recheck today's complaints, Continuance of care, Re-evaluation by your physician. vika
[2020-06-10] MEDS ORDERED: CEFTRIAXONE/SWI 1gm 1 GM/10 ML SYR ONE (00:06)
[2020-06-10 00:46] VITALS: TEMP 98.2
[2020-06-10 00:49] VITALS: BP 109/76; O2SAT 97
--- NOTE | 2020-06-10 06:36 | RAD REPORT ---
EXAM DESCRIPTION: US - Transvaginal Study Probe - 06/09/2020 10:10 pm CLINICAL HISTORY: Pelvic pain Preliminary findings provided at the time of the study COMPARISON: No comparisons TECHNIQUE: Endovaginal sonography was performed. FINDINGS: Normal size uterus identified with no myometrial mass. No endometrial mass or polyp identi fied. IUD is identified and appears well positioned. No blood or fluid in the cul de sac. Both ovaries are identified. Doppler evaluation shows normal blood flow within the ovarian stroma. Le ft ovary contains a 2.6 centimeter anechoic thin-walled cyst. No cyst rupture or hemorrhage findings. No solid mass of either ovary. No adnexal abnormality. IMPRESSION: Left ovarian 2.6 centimeter simple cyst. Normal blood flow in both ovaries. Normally positioned IUD in unremarkable uterus.
--- NOTE | 2020-06-10 10:58 | RAD REPORT ---
EXAM DESCRIPTION: CT - Abdomen Pelvis W Contrast - 06/10/2020 6:19 am CLINICAL HISTORY: Lower abdominal pain COMPARISON: None. TECHNIQUE: CT ABDOMEN PELVIS WITH IV CONTRAST on 06/09/2020 9:07 PM CDT This exam was performed according to our departmental dose-optimization program, which includes autom ated exposure control, adjustment of the mA and/or kV according to patient size and/or use of iterati ve reconstruction technique. FINDINGS: Lower lungs are clear. Abdomen: The liver is normal in appearance. There is no biliary dilatation. Gallbladder is normal in appearance. The pancreas and spleen are normal in appearance. Adrenal glands are normal. Left kidney is unremarkable. Right kidney contains two upper pole calculi measuring up to 2 mm. There is a probab le simple cyst in the mid to upper pole of the right kidney showing 3.5 cm. Abdominal aorta is normal in course and caliber without aneurysm. There is no free air. There is no r etroperitoneal adenopathy. Pelvis: There is no bowel obstruction. Urinary bladder is unremarkable. There is small amount of free pelvic fluid. Appendix is normal. Uterus is normal in size. Left ovarian cyst measures 2.6 cm. IUD i s in place. Skeleton: There are no acute osseous findings. No suspicious bony lesions. IMPRESSION: Right nephrolithiasis without hydronephrosis. 2.6 cm benign appearing ovarian cyst. No follow-up imaging is recommended. Reference: J Am Christopher Radiol 2013;10:[id number] Electronically signed by: Marcos Tapia MD 06/09/2020 11:24 PM CDT Due to temporary technical issues with the PACS/Fluency reporting system, reports are being signed by the in house radiologist without review as a courtesy to ensure prompt reporting. The interpreting r adiologist is fully responsible for the content of the report.
== END 2020-06-10 00:22 | disposition home or self-care (01) ==
LOC: ER 19:42
DX: N39.0 Urinary tract infection, site not specified (principal); Z87.442 Personal history of urinary calculi
CPT/HCPCS: 36415; 74177; 76830; 80048; 80076; 81003; 81025; 83690; 85025; 96365; 96375; 99284; Q9967

== ENCOUNTER 2020-08-24 12:39 | Emergency (ER) | payer SELFPAY ==
--- OUTSIDE RECORDS SUMMARY | 2020-08-24 12:42 | XMS REPORT | Continuity of Care Document ---
:1990 Author Organization [facility] t Address [address] [place] [address] Care Team Providers Name Role Phone Fletcher [...] Department ID 2020-04-16 2020-04-16 Office SABA Bynum [id number] 10:38:02 11:34:29 Visit Mae AYALA [id number] MAURICIO [id number] READING [phone] [facility] Results This patient has no known results.
[2020-08-24 13:15] LABS: Absolute Lymphocytes (CBC) 1.4 K/uL (0.7-4.9); Basophils % 0.4 % (0-1.3); Hematocrit 39.5 % (36.0-45.0); Lymphocytes % 19.8 % (15.3-44.8); MPV 11.1 fL (7.6-11.3); RBC Red Blood Cell Count 4.33 M/uL (3.86-4.86)
[2020-08-24] MEDS ORDERED: ONDANSETRON 4 MG/2 ML VIAL ONE ×2 (13:21→16:03)
[2020-08-24] MEDS ORDERED: MORPHINE 4 MG/ML SYR ONE ×2 (13:21→14:09)
[2020-08-24] MEDS ORDERED: NA CHLORIDE 0.9% 1,000 ML ONE (13:23)
[2020-08-24 13:42] LABS: BUN Blood Urea Nitrogen 10 mg/dL (7-18); Bicarbonate 27 mmol/L (21-32); Glucose Level 101 mg/dL (74-106); Potassium 4.2 mmol/L (3.5-5.1); Sodium Level 139 mmol/L (136-145)
--- NOTE | 2020-08-24 14:00 | RAD REPORT ---
EXAM DESCRIPTION: US - Transvaginal Study Probe - 08/24/2020 1:27 pm CLINICAL HISTORY: r/o torsion;Abd pain COMPARISON: Transvaginal Study Probe dated 06/09/2020 TECHNIQUE: Endovaginal sonography was performed. FINDINGS: Uterus measures 7.7 x 4.5 x 5.4 cm. No myometrial mass is identifiable. A thin endometrial stripe is present. IUD is in place and appears be well positioned in the fundal portion of the endom etrial cavity. No endometrial suspicious finding noted. Both ovaries are identified. Doppler evaluation shows blood flow within the ovarian stroma. Small cys ts or follicles present in each ovary. No solid or cystic ovarian or adnexal finding. IMPRESSION: Blood flow demonstrated in each ovary. No sonographic findings to suspect torsion. No adnexal mass identified. IUD appears well positioned in a normal-sized uterus. No uterine abnormality seen.
[2020-08-24 14:38] LABS: Urine Blood 3+ (Negative); Urine Glucose Negative (Negative); Urine Protein Negative (Negative); Urine pH 6.5 (5.0-7.0)
--- NOTE | 2020-08-24 15:26 | RAD REPORT ---
EXAM DESCRIPTION: CT - Abdomen Pelvis W Contrast - 08/24/2020 2:46 pm CLINICAL HISTORY: ABD PAIN COMPARISON: Abdomen Pelvis W Contrast dated 06/09/2020; Abdomen Pelvis W Contrast dated 12/30/2019 TECHNIQUE: Biphasic, helical CT imaging of the abdomen and pelvis was performed following 100 ml non -ionic IV contrast. No oral contrast administered. All CT scans are performed using dose optimization technique as appropriate and may include automated exposure control or mA/KV adjustment according to patient size. FINDINGS: No suspicious findings in the lung bases. The liver, spleen, and pancreas show no suspicious findings. Gallbladder and biliary tree are also wi thout suspicious finding. Moderate severity hydronephrosis and hydroureter noted on the right extending to the distal ureter 2 cm from the bladder. There is an obstructing 6 millimeter calcification. No other obstructing or nono bstructing calculi seen on the right. No left-sided hydronephrosis. Right renal function is delayed c ompared to the left. No pyelonephritis or acute parenchymal process. Approximately 3 centimeter sized right renal cyst seen on the May study is no longer present. This may have ruptured into the retro peritoneal fat or may have decompressed into a calyx. There is focal scarring in the cortex at this l ocation. No adrenal abnormalities. Partially filled urinary bladder shows no suspicious finding. Retroflexed uterus contains an IUD that appears well positioned. No uterine or ovarian significant fi nding. No dilated bowel loops or bowel wall thickening. Appendix is normal. Moderate stool volume is present . No free air, free fluid or inflammatory stranding. No hernia, mass or bulky lymphadenopathy. No suspicious bony findings. IMPRESSION: Moderate severity right-sided hydronephrosis and hydroureter secondary to a 6 mm obstruc ting calculus approximately 2 cm from the bladder. Right renal function is delayed due to the hydronephrosis. No pyelonephritis cysts or suspicious eric l parenchymal mass. A 3 centimeter cyst seen on the May study is no longer present on the right. This may have ruptured and decompressed into a calyx or into the retroperitoneal fat. Small focus of scarring is present at the site of the cyst.
[2020-08-24] MEDS ORDERED: TAMSULOSIN 0.4 MG SR CAP ONE (16:00)
[2020-08-24] MEDS ORDERED: MAGNESIUM SULFATE 1 gm IVPB 1 GM/100 ML BAG IV ONE (16:00)
--- NOTE | 2020-08-24 16:18 | ER ---
Nurse's Notes [facility] Name: Mary Jane Rodriguez Age: 30 yrs Sex: Female : 1990 Arrival Date: 08/24/2020 Time: 12:42 Bed 5 Private MD: Diagnosis: Calculus of kidney and ureter Presentation: 08/24 12:49 Chief complaint: Patient states: "I am having sever right lower stomach pain.". jd3 Coronavirus screen: At this time, the client does not indicate any symptoms associated with coronavirus-19. Ebola Screen: Patient negative for fever greater than or equal to 101.5 degrees Fahrenheit, and additional compatible Ebola Virus Disease symptoms. Initial Sepsis Screen: Does the patient meet any 2 criteria? No. Patient's initial sepsis screen is negative. Does the patient have a suspected source of infection? No. Patient's initial sepsis screen is negative. Risk Assessment: Do you want to hurt yourself or someone else? Patient reports no desire to harm self or others. Onset of symptoms was August 24, 2020. 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 - Social history:: Smoking status: Patient/guardian denies using tobacco, but has a distant history of tobacco abuse. Screenin:52 Abuse screen: Denies threats or abuse. Denies injuries from another. Nutritional sv screening: No deficits noted. Tuberculosis screening: No symptoms or risk factors identified. Fall Risk None identified. Assessment: 13:08 General: Appears uncomfortable, Behavior is cooperative, anxious, crying, restless. hb Pain: Pain currently is 10 out of 10 on a pain scale. Neuro: Level of Consciousness is awake, alert, obeys commands, Oriented to person, place, time, situation. Cardiovascular: Patient's skin is warm and dry. Respiratory: Respiratory effort is even, unlabored, Respiratory pattern is regular, symmetrical. GI: Reports severe RLQ pain. : No signs and/or symptoms were reported regarding the genitourinary system. EENT: No signs and/or symptoms were reported regarding the EENT system. Derm: Skin is pink, warm \\T\\ dry. Musculoskeletal: No signs and/or symptoms reported regarding the musculoskeletal system. 13:51 Reassessment: Patient appears in no apparent distress at this time. Patient and/or sv family updated on plan of care and expected duration. Pain level reassessed. Patient is alert, oriented x 3, equal unlabored respirations, skin warm/dry/pink. Patient states symptoms have improved. Pain: Complains of pain in abdomen Pain currently is 7 out of 10 on a pain scale. Quality of pain is described as tender, Is continuous, Noted to be guarding, moaning, resistant to movement. 15:47 Reassessment: Patient appears in no apparent distress at this time. Patient and/or sv family updated on plan of care and expected duration. Pain level reassessed. Patient is alert, oriented x 3, equal unlabored respirations, skin warm/dry/pink. Patient states feeling better. Patient states symptoms have improved. 16:16 Reassessment: Patient appears in no apparent distress at this time. Patient and/or hb family updated on plan of care and expected duration. Pain level reassessed. Patient is alert, oriented x 3, equal unlabored respirations, skin warm/dry/pink. 16:36 Reassessment: Patient appears in no apparent distress at this time. Patient and/or sv family updated on plan of care and expected duration. Pain level reassessed. Patient is alert, oriented x 3, equal unlabored respirations, skin warm/dry/pink. Patient states feeling better. Patient states symptoms have improved. Vital Signs: 12:51 BP 155 / 106; Pulse 105; Resp 19 S; Temp 98.6(TE); Pulse Ox 99% on R/A; Weight 77.11 kg jd3 (R); Height 5 ft. 4 in. (162.56 cm) (R); Pain 10/10; 13:49 BP 123 / 61; Pulse 60; Resp 20; Pulse Ox 97% ; sv 13:53 Pain 7/10; sv 15:22 BP 118 / 86; Pulse 66; Resp 20; Pulse Ox 95% ; sv 16:16 BP 115 / 70; Pulse 55; Resp 16; Pulse Ox 98% ; sv 12:51 Body Mass Index 29.18 (77.11 kg, 162.56 cm) jd3 ED Course: 12:42 Patient arrived in ED. mr 12:50 Triage completed. jd3 12:51 Arm band placed on. jd3 12:52 Anh Nagel, RN is Primary Nurse. sv 12:52 Patient has correct armband on for positive identification. Bed in low position. Call sv light in reach. Door closed. Head of bed elevated. 12:54 Lilo Nichols FNP-C is PHCP. kb 12:54 William Anderson MD is Attending Physician. kb 13:06 Inserted saline lock: 20 gauge in right wrist, using aseptic technique. Blood collected.hb 13:27 US Transvaginal Study (Probe) In Process Unspecified. EDMS 14:46 CT Abd/Pelvis - IV Contrast Only In Process Unspecified. EDMS 15:02 Urine --Ancillary (enter results) Sent. sv 16:36 No provider procedures requiring assistance completed. IV discontinued, intact, sv bleeding controlled, No redness/swelling at site. Pressure dressing applied. Administered Medications: 13:07 Drug: Zofran (Ondansetron) 4 mg Route: IVP; Site: right wrist; hb 13:46 Follow up: Response: No adverse reaction sv 13:08 Drug: morphine 4 mg Route: IVP; Site: right wrist; hb 13:53 Follow up: Pain 7/10 Adult; Response: No adverse reaction; Pain is decreased; RASS: sv Agitated (+2) 13:53 Drug: NS 0.9% 1000 ml Route: IV; Rate: 1000 ml; Site: right wrist; sv 15:00 Follow up: Response: No adverse reaction; IV Status: Completed infusion; IV Intake: sv 1000ml 13:53 Drug: morphine 4 mg {Note: rass2.} Route: IVP; Site: right wrist; sv 14:25 Follow up: Response: No adverse reaction hb 15:47 Drug: Magnesium Sulfate 1 grams Route: IVPB; Infused Over: 30 mins; Site: right wrist; sv 16:16 Follow up: Response: No adverse reaction; IV Status: Completed infusion; IV Intake: hb 100ml 15:47 Drug: Flomax (tamsulosin) 0.4 mg Route: PO; sv 16:16 Follow up: Response: No adverse reaction hb Intake: 15:00 IV: 1000ml; Total: 1000ml. sv 16:16 IV: 100ml; Total: 1100ml. hb Outcome: 16:17 Discharge ordered by . kb 16:36 Discharged to home via wheelchair, with family. sv 16:36 Condition: stable 16:36 Condition: improved 16:36 Discharge instructions given to patient, Instructed on discharge instructions, follow up and referral plans. medication usage, increase fluid intake Demonstrated understanding of instructions, follow-up care, medications, Prescriptions given X 4. 16:37 Patient left the ED. sv Signatures: Dispatcher [employer] EDMS Lilo Nichols, FRUIT TRIMMER-C FRUIT TRIMMER-Anh Nguyen, RN Corinna Conroy Heather, RN RN hb Davies, Jonathon, RN RN jd3
--- NOTE | 2020-08-24 16:18 | EDPHYS ---
Physician Documentation [facility] Name: Mary Jane Rodriguez Age: 30 yrs Sex: Female : 1990 Arrival Date: 08/24/2020 Time: 12:42 Bed 5 Private MD: ED Physician William Anderson HPI: 08/24 14:23 This 30 yrs old Female presents to ER via Ambulatory with complaints of kb Abdominal Cramping. 14:23 The patient has not experienced similar symptoms in the past. The patient has not kb recently seen a physician. 14:24 The patient presents with abdominal pain right lower quadrant. Onset: The kb symptoms/episode began/occurred this morning. The symptoms do not radiate. Associated signs and symptoms: Pertinent positives: nausea, Pertinent negatives: fever, vomiting. The symptoms are described as constant. Modifying factors: The symptoms are alleviated by nothing, the symptoms are aggravated by nothing. Severity of pain: At its worst the pain was moderate in the emergency department the pain is unchanged. Pt states she woke up with RLQ pain and it has been getting worse throughout the day. 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 - Social history:: Smoking status: Patient/guardian denies using tobacco, but has a distant history of tobacco abuse. ROS: 14:22 Constitutional: Negative for fever, chills, and weight loss. kb 14:22 Abdomen/GI: Positive for abdominal pain, Negative for nausea, vomiting, and diarrhea. 14:22 All other systems are negative. Exam: 14:23 Constitutional: This is a well developed, well nourished patient who is awake, alert, kb and in no acute distress. Head/Face: Normocephalic, atraumatic. ENT: Moist Mucous membranes Cardiovascular: Regular rate and rhythm with a normal S1 and S2. No gallops, murmurs, or rubs. No pulse deficits. Respiratory: Respirations even and unlabored. No increased work of breathing, no retractions or nasal flaring. Back: No spinal tenderness. No costovertebral tenderness. Full range of motion. Skin: Warm, dry with normal turgor. Normal color. MS/ Extremity: Pulses equal, no cyanosis. Neurovascular intact. Full, normal range of motion. Neuro: Awake and alert, GCS 15, oriented to person, place, time, and situation. Moves all extremities. Normal gait. Psych: Awake, alert, with orientation to person, place and time. Behavior, mood, and affect are within normal limits. 14:23 Abdomen/GI: Inspection: abdomen appears normal, Bowel sounds: normal, in all quadrants, Palpation: soft, in all quadrants, moderate abdominal tenderness, in the right lower quadrant. Vital Signs: 12:51 BP 155 / 106; Pulse 105; Resp 19 S; Temp 98.6(TE); Pulse Ox 99% on R/A; Weight 77.11 kg jd3 (R); Height 5 ft. 4 in. (162.56 cm) (R); Pain 10/10; 13:49 BP 123 / 61; Pulse 60; Resp 20; Pulse Ox 97% ; sv 13:53 Pain 7/10; sv 15:22 BP 118 / 86; Pulse 66; Resp 20; Pulse Ox 95% ; sv 16:16 BP 115 / 70; Pulse 55; Resp 16; Pulse Ox 98% ; sv 12:51 Body Mass Index 29.18 (77.11 kg, 162.56 cm) jd3 MDM: 12:54 Patient medically screened. kb 14:21 Data reviewed: vital signs, nurses notes. Data interpreted: Pulse oximetry: on room air kb is 97 %. Interpretation: normal. 16:17 Counseling: I had a detailed discussion with the patient and/or guardian regarding: the kb historical points, exam findings, and any diagnostic results supporting the discharge/admit diagnosis, lab results, radiology results, the need for outpatient follow up, a urologist, to return to the emergency department if symptoms worsen or persist or if there are any questions or concerns that arise at home. 16:19 Response to treatment: the patient's symptoms have markedly improved after treatment. kb 08/24 12:59 Order name: Basic Metabolic Panel; Complete Time: 13:44 kb 08/24 12:59 Order name: CBC with Diff; Complete Time: 13:22 kb 08/24 12:59 Order name: US Transvaginal Study (Probe); Complete Time: 14:07 kb 08/24 14:38 Order name: Urine Dipstick-Ancillary; Complete Time: 14:47 EDMS 08/24 14:39 Order name: Urine --Ancillary (enter results) bd 08/24 14:40 Order name: Urine --Ancillary; Complete Time: 15:07 EDMS 08/24 12:59 Order name: IV Saline Lock; Complete Time: 13:08 kb 08/24 14:07 Order name: CT Abd/Pelvis - IV Contrast Only; Complete Time: 15:30 kb 08/24 12:59 Order name: Labs collected and sent; Complete Time: 13:08 kb 08/24 12:59 Order name: Urine Test (obtain specimen); Complete Time: 14:35 kb 08/24 12:59 Order name: Urine Dipstick-Ancillary (obtain specimen); Complete Time: 14:35 kb Administered Medications: 13:07 Drug: Zofran (Ondansetron) 4 mg Route: IVP; Site: right wrist; hb 13:46 Follow up: Response: No adverse reaction sv 13:08 Drug: morphine 4 mg Route: IVP; Site: right wrist; hb 13:53 Follow up: Pain 7/10 Adult; Response: No adverse reaction; Pain is decreased; RASS: sv Agitated (+2) 13:53 Drug: NS 0.9% 1000 ml Route: IV; Rate: 1000 ml; Site: right wrist; sv 15:00 Follow up: Response: No adverse reaction; IV Status: Completed infusion; IV Intake: sv 1000ml 13:53 Drug: morphine 4 mg {Note: rass2.} Route: IVP; Site: right wrist; sv 14:25 Follow up: Response: No adverse reaction hb 15:47 Drug: Magnesium Sulfate 1 grams Route: IVPB; Infused Over: 30 mins; Site: right wrist; sv 16:16 Follow up: Response: No adverse reaction; IV Status: Completed infusion; IV Intake: hb 100ml 15:47 Drug: Flomax (tamsulosin) 0.4 mg Route: PO; sv 16:16 Follow up: Response: No adverse reaction hb Disposition: 17:26 Co-signature as Attending Physician, William Anderson MD. rn Disposition: 08/24/20 16:17 Discharged to Home. Impression: Calculus of kidney and ureter. - Condition is Stable. - Discharge Instructions: Kidney Stones, [id number], Dietary Guidelines to Help Prevent Kidney Stones. - Prescriptions for Augmentin 875- 125 mg Oral Tablet - take 1 tablet by ORAL route every 12 hours for 10 days; 20 tablet. Zofran 4 mg Oral Tablet - take 1 tablet by ORAL route every 6 hours As needed; 20 tablet. Flomax 0.4 mg Oral Capsule, Sust. Release 24 hr - take 1 capsule by ORAL route once daily 1/2 hour following the same meal each day; 10 capsule. Diclofenac Sodium 75 mg Oral Tablet, Delayed Release (E.C.) - take 1 tablet by ORAL route 2 times per day As needed; 30 tablet. - Medication Reconciliation Form, Thank You Letter, Antibiotic Education, Prescription Opioid Use, Work release form form. - Follow up: Emergency Department; When: As needed; Reason: Worsening of condition. Follow up: Private Physician; When: 2 - 3 days; Reason: Recheck today's complaints, Continuance of care, Re-evaluation by your physician. Signatures: Dispatcher [employer] EDKY Lilo Nichols, REGISTERED MASSAGE THERAPIST-C REGISTERED MASSAGE THERAPIST-Anh Nguyen RN RN sv Nieto, Roman, MD MD rn Baxter, Heather, RN RN hb Davies, Jonathon, RN RN jd3 Corrections: (The following items were deleted from the chart) 16:37 16:17 08/24/2020 16:17 Discharged to Home. Impression: Calculus of kidney and ureter. sv Condition is Stable. Forms are Medication Reconciliation Form, Thank You Letter, Antibiotic Education, Prescription Opioid Use. Follow up: Emergency Department; When: As needed; Reason: Worsening of condition. Follow up: Private Physician; When: 2 - 3 days; Reason: Recheck today's complaints, Continuance of care, Re-evaluation by your physician. kb
[2020-08-24 17:21] VITALS: TEMP 98.6
[2020-08-24 17:28] VITALS: BP 115/70; O2SAT 98
== END 2020-08-24 16:37 | disposition home or self-care (01) ==
LOC: ER 12:39
DX: N20.2 Calculus of kidney with calculus of ureter (principal); Z87.442 Personal history of urinary calculi
CPT/HCPCS: 36415; 74177; 76830; 80048; 81003; 81025; 85025; 96361; 96365; 96375; 99284; J2405; J3475; J7030; Q9967

== ENCOUNTER 2022-04-03 18:47 | Emergency (ER) | payer SELFPAY ==
--- OUTSIDE RECORDS SUMMARY | 2022-04-03 19:06 | XMS REPORT | Continuity of Care Document ---
:1990 Author Organization [facility] t Address [address] [place] [address] Care Team Providers Name Role Phone PCP, PATIENT DOES NOT HAVE A Primary Care Physician UnavailMAE Whalen Attending Clinician Unavailable MIRELLA GARCÍA Attending Clinician Unavailable Mirella García MD Attending Clinician JAZZY CARDENAS Attending Clinician Unavailable JAZZY CARDENAS Attending Clinician Unavailable Fara White Attending Clinician Unknown, Attending Attending Clinician Unavailable FARA DOLAN Attending Clinician Unavailable 2, [facility] Attending Clinician Unavailable Mae Holt Attending Clinician Bonifacio Larsen MD Attending Clinician BONIFACIO LARSEN Attending Clinician Unavailable BONIFACIO LARSEN Attending Clinician Unavailable Doctor Unassigned, [place] Attending Clinician Unavailable Vtc-Lab Attending Clinician Unavailable Pob, [facility] Main Attending Clinician Unavailable Payers Payer Name Policy Type Policy Number Effective Date Expiration Date S en[place] [facility] [place] [id number] 2019 00:00:00 WOMEN Problems Condition Condition Condition Status Onset Resolution Last Treating Co mments Source Name Details Category Date Date Treatment Clinician Date ASCUS with ASCUS with Disease Active 2021-02 U nivers positive positive 0-27 [place] HPV 00 [place] cervical cervical Branch Screening Screening Disease Active Uni vers for STD for STD 9-14 ity of (sexually (sexually 00:[place] transmitte transmitte 00 Me dical d disease) d disease) Br anch Screening Screening Disease Active Uni vers for for 11-10 [place] of malignant malignant 00:[place] neoplasm neoplasm 00 Medica l of the of the Branch cervix cervix External External Disease Active Unive rs thrombosed thrombosed 11-10 it y of hemorrhoid hemorrh[place] BMI BMI Disease Active Univers 27.0-27.9, 27.0-27.9, 11-10 it y of adult adult 00:00: [address] BMI BMI Disease Active Univers 28.0-28.9, 28.0-28.9, 11-10 it y of adult adult 00:00: [address] Allergies, Adverse Reactions, Alerts Allergy Allergy Status Severity Reaction(s) Onset Inactive Treating Comm ents Source Name Type Date Date Clinician NO KNOWN Drug Active Univers ALLERGIE Class ity of S [facility] Social History Social Habit Start Date Stop Date Quantity Comments Source History of Passive smoker University of tobacco use [facility] History SDOH University [facility] [place] History SDOH University o f Alcohol Std [place] [facility] Dr[facility] Branch History SDOH University o f Alcohol Binge [facility] [place] Exposure to 2022-02-01 2022-02-11 Not sure University SARS-CoV-2 00:00:00 08:40:00 [facility] (event) [place] Alcohol intake 2021-12-23 2021-12-23 Current drinker of Un iversity of 00:00:00 00:00:00 [facility] ([facility] [place] Tobacco use and 2021-11-10 2021-11-10 Smokeless tobacco Un iversity of exposure 00:00:00 00:00:00 non-user [facility] Alcohol Comment 2021-11-10 2021-11-10 occasionally Univers ity of 00:00:00 00:00:00 [facility] Sex Ass[birth year] At [birth year] Universit y of 00:00:00 00:00:00 [facility] Smoking Status Start Date Stop Date Source Tobacco smoking consumption Univ ersity of [facility] unknown Branch Never smoked tobacco [facility] Medications Ordered Filled Start Stop Current Ordering Indication Dosage Frequency Signature Comments Components Source Medication Medication Date Date Medication? Clinician (SIG) Name Name Lane 2021-02- No [id number] 1g Take 1 Univers r (VALTREX) 0-06 10-14 tablet by it y of 1 gram 00:00: 04:59 mouth in [place] tablet 00 :00 the Medical morning Branch and 1 tablet at noon and 1 tablet in the evening. Do all this for 7 days. predniSONE 2021-02- No [id number] 40mg Take 2 U nivers 20 mg 0-06 10-12 tablets by ity of tablet 00:00: 04:59 mouth in [place] 00 :00 the Medical morning Branch for 5 days. No known No No known Unive rs medications 9-14 medication it y of 15:13: s [place] 54 Medical Branch hydrocortis Yes [id number] Insert Univers one 9-14 into ity of (ANUSOL-HC) 00:00[place]um 2 [place] % [place] (two) Medical rectal times Branch cream daily. hydrocortis Yes [id number] Insert Univers one 9-14 into ity of (ANUSOL-HC) 00:00: rectum 2 [place] 2.[place] % 00 (two) Medical rectal times Branch cream daily. hydrocortis Yes [id number] Insert Univers one 9-14 into ity of (ANUSOL-HC) 00:00: rectum 2 [place] 2.[place] % 00 (two) Medical rectal times Branch cream daily. hydrocortis Yes [id number] Insert Univers one 9-14 into ity of (ANUSOL-HC) 00:00: rectum 2 [place] 2.[place] % 00 (two) Medical rectal times Branch cream daily. hydrocortis Yes [id number] Insert Univers one 9-14 into ity of (ANUSOL-HC) 00:00: rectum 2 [place] 2.5 % 00 (two) Medical rectal times Branch cream daily. hydrocortis Yes [id number] Insert Univers one 9-14 into ity of (ANUSOL-HC) 00:00: rectum 2 [place] 2.5 % 00 (two) Medical rectal times Branch cream daily. SERTraline Yes 1{tbl} Take 1 Uni vers 100 mg 5-02 tablet by ity of tablet 00:00: mouth. [address] Branch SERTraline 2021-0 Yes 1{tbl} Take 1 Uni vers 100 mg 5-02 tablet by ity of tablet 00:00: mouth. [place] [facility] SERTraline 2021-0 Yes 1{tbl} Take 1 Uni vers 100 mg 5-02 tablet by ity of tablet 00:00: mouth. [place] [facility] [place] SERTraline 2021-0 Yes 1{tbl} Take 1 Uni vers 100 mg 5-02 tablet by ity of tablet 00:00: mouth. [place] [facility] Branch SERTraline 2021-0 Yes 1{tbl} Take 1 Uni vers 100 mg 5-02 tablet by ity of tablet 00:00: mouth. [place] [address] Medical Branch SERTraline 0 Yes 1{tbl} Take 1 Uni vers 100 mg 5-02 tablet by ity of tablet 00:00: mouth. [address] Branch clobetasoL 2-0 Yes [id number] Apply to Univers 0.05 % 4-14 area(s) 2 ity of ointment 00:00: (two) [place] 00 times Medical daily as Branch needed for Itching. clobetasoL 2022-0 Yes [id number] Apply to Univers 0.05 % 4-14 area(s) 2 ity of ointment 00:00: (two) [place] 00 times Medical daily as Branch needed for Itching. clobetasoL 2022-0 Yes [id number] Apply to Univers 0.05 % 4-14 area(s) 2 ity of ointment 00:00: (two) [place] 00 times Medical daily as Branch needed for Itching. clobetasoL 2022-0 Yes [id number] Apply to Univers 0.05 % 4-14 area(s) 2 ity of ointment 00:00: (two) [place] 00 times Medical daily as Branch needed for Itching. clobetasoL 2022-0 Yes [id number] Apply to Univers 0.05 % 4-14 area(s) 2 ity of ointment 00:00: (two) [place] 00 times Medical daily as Branch needed for Itching. clobetasoL 2022-0 Yes [id number] Apply to Univers 0.05 % 4-14 area(s) 2 ity of ointment 00:00: (two) [place] 00 times Medical daily as Branch needed for Itching. hydroCHLORO 0 Yes [id number] 12.5mg Take 1 Univers thiazide 3-11 capsule by ity o f 12.5 mg 00:00: mouth [place] capsule 00 daily. Medical Branch hydroCHLORO 0 Yes [id number] 12.5mg Take 1 Univers thiazide 3-11 capsule by ity o f 12.5 mg 00:00: mouth [place] capsule 00 daily. Medical Branch hydroCHLORO 0 Yes [id number] 12.5mg Take 1 Univers thiazide 3-11 capsule by ity o f 12.5 mg 00:00: mouth [place] capsule 00 daily. Medical Branch hydroCHLORO 0 Yes [id number] 12.5mg Take 1 Univers thiazide 3-11 capsule by ity o f 12.5 mg 00:00: mouth [place] capsule 00 daily. Medical Branch hydroCHLORO Yes [id number] 12.5mg Take 1 Univers thiazide 3-11 capsule by ity o f 12.5 mg 00:00: mouth [place] capsule 00 daily. Medical Branch hydroCHLORO Yes [id number] 12.5mg Take 1 Univers thiazide 3-11 capsule by ity o f 12.5 mg 00:00: mouth [place] capsule 00 daily. Medical Branch ferrous 0 Yes 325mg Take 1 Univers sulfate 325 1-22 tablet by ity of mg (65 mg 00:00: mouth [place] iron) EC 00 daily with Medic al tablet breakfast. Branch ferrous 0 Yes 325mg Take 1 Univers sulfate 325 1-22 tablet by ity of mg (65 mg 00:00: mouth [place] iron) EC 00 daily with Medic al tablet breakfast. Branch ferrous 0 Yes 325mg Take 1 Univers sulfate 325 1-22 tablet by ity of mg (65 mg 00:00: mouth [place] iron) EC 00 daily with Medic al tablet breakfast. Branch ferrous 0 Yes 325mg Take 1 Univers sulfate 325 1-22 tablet by ity of mg (65 mg 00:00: mouth [place] iron) EC 00 daily with Medic al tablet breakfast. Branch ferrous 0 Yes 325mg Take 1 Univers sulfate 325 1-22 tablet by ity of mg (65 mg 00:00: mouth [place] iron) EC 00 daily with Medic al tablet breakfast. Branch ferrous Yes 325mg Take 1 Univers sulfate 325 1-22 tablet by ity of mg (65 mg 00:00: mouth [place] iron) EC 00 daily with Medic al tablet breakfast. Branch Vital Signs Vital Name Observation Time Observation Value Comments Source Systolic blood 2022-02-11 14:49:00 119 mm[Hg] [facility]iver [facility] Diastolic blood 2022-02-11 14:49:00 87 mm[Hg] Unive [facility] Heart rate 2022-02-11 14:49:00 96 /min Universi ty of [facility] Body temperature 2022-02-11 14:49:00 37.11 Anah[place] Univ ersity of [facility] Respiratory rate 2022-02-11 14:49:00 18 /min Univ ersity of [facility] Body height 2022-02-11 14:49:00 163.8 cm Universi ty of [facility] Body weight 2022-02-11 14:49:00 73.936 kg Universi ty of [facility] BMI 2022-02-11 14:49:00 27.55 kg/m2 Universi ty of [facility] Systolic blood 2021-12-23 19:26:00 140 mm[Hg] Univer [facility] Diastolic blood 2021-12-23 19:26:00 91 mm[Hg] Unive [facility] Heart rate 2021-12-23 19:25:00 93 /min Universi ty of [facility] Body temperature 2021-12-23 19:25:00 37.06 Anahy Univ ersity of [facility] Respiratory rate 2021-12-23 19:25:00 18 /min Univ ersity of [facility] Body height 2021-12-23 19:25:00 162.6 cm Universi ty of [facility] Body weight 2021-12-23 19:25:00 76.204 kg Universi ty of [facility] BMI 2021-12-23 19:25:00 28.84 kg/m2 Universi ty of [facility] Systolic blood 2021-12-02 18:39:00 143 mm[Hg] [facility]iver [facility] Diastolic blood 2021-12-02 18:39:00 89 mm[Hg] Unive rsity of pressure [facility] Heart rate 2021-12-02 18:37:00 112 /min Universi ty of [facility] Body temperature 2021-12-02 18:37:00 36.72 [place] Univ ersity of [facility] Respiratory rate 2021-12-02 18:37:00 18 /min Univ ersity of [facility] Body height 2021-12-02 18:37:00 162.6 cm Universi ty of [facility] Body weight 2021-12-02 18:37:00 75.252 kg Universi ty of [facility] BMI 2021-12-02 18:37:00 28.48 kg/m2 [facility] Oxygen saturation in 2021-12-02 18:37:00 98 /min [facility] Arterial blood by [facility] Pulse oximetry Branch Systolic blood 2021-11-10 19:43:00 137 mm[Hg] [facility]iver [facility] Diastolic blood 2021-11-10 19:43:00 86 mm[Hg] [facility]ive [facility] Heart rate 2021-11-10 19:43:00 86 /min Universi ty of [facility] Body temperature 2021-11-10 19:43:00 36.72 [place] [facility] Respiratory rate 2021-11-10 19:43:00 17 /min [facility] Body height 2021-11-10 19:43:00 163.8 cm [facility] [place] ty [facility] Body weight 2021-11-10 19:43:00 73.256 kg [facility] BMI 2021-11-10 19:43:00 27.29 kg/m2 [facility] Procedures Procedure Date / Time Performing Clinician Source Performed POCT TEST 2022-02-11 14:59:00 Mirella García [facility] PATIENT FINANCIAL Doctor Unassigned, [facility] RESPONSIBILITY - ALL [place] [facility] FORMS Encounters Start End Encounter Admission Attending Care Care Encounter Source Date/Time Date/Time Type Type Clinicians Facility Department ID 2022-04-21 2022-04-21 Outpatient Ronnie BYNUM [facility] [id number] Univers 11:00:00 11:00:00 MAE ity [facility] 2022-04-21 2022-04-21 Outpatient R FLETCHER [facility] [id number] Univers 11:00:00 11:00:00 MAE ity [facility] 2022-04-21 2022-04-21 Outpatient R FLETCHER [facility] [id number] Univers 11:00:00 11:00:00 MAE ity [facility] 2022-02-11 2022-02-11 Outpatient R NAKUL [facility] [id number] Univers 09:00:00 09:32:40 MIRELLA ity [facility] 2022-02-11 2022-02-11 Office [facility]ly [facility] [id number] Univers 09:00:00 09:32:40 Visit Mirella PIERRE [id number] ity of [facility] [id number] [place] [id number] [address] 2021-12-23 2021-12-23 Outpatient R THERESA JAZZY [facility] B [id number] Univers 14:30:00 14:34:41 [facility] 2021-12-23 2021-12-23 [facility] 1.2.840.114 [id number] Univers 14:30:00 14:34:41 Visit Jazzy MILTON [id number] it y of W[place]'S [id number] [place] [id number] [address] 2021-12-02 2021-12-02 Urgent Fara Dolan [facility] 1.2.840.114 [id number] Univers 13:40:00 14:00:00 Care Unknown, Attending HEALTH [id number] ity of [facility] [id number] Amadeo as SWETHA?BLEA [phone] Ak dical SAND[address] MEDICAL OFFICE BUILDING 2021-12-02 2021-12-02 Outpatient R NUNU [facility] [id number] Univers 13:40:00 13:40:00 FARA itsaira of [facility] 2021-11-10 2021-11-10 Outpatient R OSCARABDI JAZZY [facility] B [id number] Univers 14:30:00 15:10:39 TRIJAZZY HARDING [facility] 2021-11-10 2021-11-10 Office Theresa [facility] 1.2.840.114 [id number] Univers 14:30:00 15:10:39 Visit Jazzy MILTON [id number] it y of [facility] [id number] [facility] [place] [facility] [place] [facility] [phone] [place] [address] Branch 2021-11-10 2021-11-10 Outpatient R OSCARABDI JAZZY [facility] B [id number] Univers 14:30:00 15:10:39 OSCARJAZZY PATTON [facility] 2021-07-05 2021-07-05 Fiber Locking Supervisor 2, Adc Lab [facility] 1.2.840.114 [id number] Univers 09:45:00 10:00:00 Visit Mae Bynum [id number] ity of [facility] [id number] [facility] [place] [facility] [facility] [phone] [address] 2021-07-05 2021-07-05 Outpatient R FLETCHER [facility] [id number] Univers 09:45:00 09:45:00 MAE coughliny of [facility] 2021-07-05 2021-07-05 Outpatient R [facility] [id number] Univers 09:15:00 09:15:00 ity of [facility] 2021-06-10 2021-06-10 [facility] 1.2.840.114 [id number] Univers 11:00:00 11:29:32 Visit Bonifacio [id number] ity of [place] [id number] [place] [id number] [facility] AND [address] DIABETES CLINIC 2021-06-10 2021-06-10 Outpatient R BONIFACIO LARSEN [facility] B [id number] Univers 11:00:00 11:29:32 BONIFACIO LARSEN itsaira [facility] 2021-06-10 2021-06-10 Outpatient R BONIFACIO LARSEN [facility] B [id number] Univers 11:00:00 11:00:00 BONIFACIO LARSEN itsaira [facility] 2021-05-07 2021-05-07 Telephone Fletcher [facility] 1.2.840.114 [id number] Univers 00:00:00 00:00:00 Mae DISLAPEC [id number] ity of [place] [id number] [place] [id number] [facility] [place] [address] [place] DI[facility]ES CLINIC 2021-04-26 2021-04-26 Fiber Locking Supervisor 2, Adc Lab [facility] 1.2.840.114 [id number] Univers 08:30:00 08:45:00 Visit Mae Bynum [id number] ity of [place] [id number] [place] [phone] Ak dical [facility] [address] [facility] 2021-04-26 2021-04-26 [facility] [id number] Univers 08:30:00 08:30:00 MAE ennis [facility] 2021-04-26 2021-04-26 [facility] [id number] Univers 08:30:00 08:30:00 MAE coughliny [facility] 2021-04-26 2021-04-26 Orders Doctor OSHEA 1.2.840.114 [id number] Univers 00:00:00 00:00:00 Only Unassigned, BRETT 350.1.13.10 ity of [place] [facility] [id number] Amadeo as [id number] [facility] 009 Branch 2021-04-22 2021-04-22 Fiber Locking Supervisor Vtc-Lab [facility] 1.2.840.114 [id number] Univers 12:45:00 13:00:00 Visit Mae Bynum 350.1.13.1 0 ity of [id number] [id number] [address] DIABETES CLINIC 2021-04-22 2021-04-22 Outpatient R FLETCHER [facility] [id number] Univers 11:00:00 11:42:08 MAE ity [facility] 2021-04-22 2021-04-22 Office Fletcher [facility] [id number] Univers 11:00:00 11:42:08 Visit Mae AYALA [id number] ity of [id number] [id number] [address] DIABETES CLINIC 2021-04-16 2021-04-16 Fiber Locking Supervisor 2, [facility] 1.2.840.114 [id number] Univers 08:30:00 08:41:46 Visit Mae Bynum [id number] ity of [place] [id number] [place]ESS[place] [id number] [address] 2021-04-16 2021-04-16 Outpatient R FLETCHER [facility] [id number] Univers 08:30:00 08:30:00 MAE ity [facility] 2021-04-15 2021-04-15 [facility] 1.2.840.114 [id number] Univers 00:00:00 00:00:00 Mae AYALA [id number] it[id number] [id number] [address] DIABETES CLINIC 2020-10-15 2020-10-15 Fiber Locking Supervisor Vtc-Lab [facility] 1.2.840.114 [id number] Univers 11:36:37 11:51:37 Visit Mae Bynum 350.1.13.1 0 ity [id number] [id number] [address] DIABETES CLINIC 2020-10-15 2020-10-15 Office Fletcher [facility] [id number] Univers 11:02:31 11:35:20 Visit Mae AYALA 350.1.13.10 ity of [place] [id number] [facility] [place] [facility] [place] [id number] [address] DIABETES CLINIC 2020-10-15 2020-10-15 Outpatient R FLETCHER [facility] [id number] Univers 11:00:00 11:00:00 [facility] 2020-10-12 2020-10-12 [facility] [id number] Univers 13:00:00 13:00:00 [facility] 2020-10-06 2020-10-06 [facility] 1.2.840.114 [id number] Univers 00:00:00 00:00:00 Mae MULTISPEC 350.1.13.10 ity of [place] [id number] [facility] [place] [facility] [place] [id number] [address] DIABETES CLINIC 2020-04-16 2020-04-16 Office [facility] [id number] 10:38:02 11:34:29 Visit Mae DISLAPEC 350.1.13.10 IALTY [id number] [place] [id number] [place] [address] DIABETES CLINIC 2020-04-16 2020-04-16 [facility] [id number] Univers 10:38:02 11:34:29 Visit Mae DISLAPEC 350.1.13.10 ity of [place] 4.2.7.2.686 [facility] [place] [facility] [place] [id number] [address] DIABETES CLINIC 2020-04-16 2020-04-16 Outpatient R FLETCHER [facility] [id number] Univers 11:00:00 11:00:00 MAE [facility] 2020-04-14 2020-04-14 Outpatient R FLETCHER [facility] [id number] Univers 13:30:00 13:30:00 MAE [facility] 2020-04-09 2020-04-09 Fiber Locking Supervisor 2, Adc Lab [facility] 1.2.840.114 [id number] Univers 16:07:26 16:22:26 Visit Mae [place] 350.1.13.10 ity of [place] 4.2.7.2.686 [place] [facility] [phone] Ak dical nal [address] 2020-04-09 2020-04-09 Outpatient R FLETCHER [facility] [id number] Univers 16:15:00 16:15:00 MAE ity [facility] 2020-04-08 2020-04-08 Telephone [facility] 1.2.840.114 [id number] Univers 00:00:00 00:00:00 Mae AYALA 350.1.13.10 ity [id number] [id number] [address] DIABETES CLINIC 2020-03-19 2020-03-19 Hospital [facility] 1.2.840.114 [id number] Univers 13:26:27 23:59:00 Encounter Mae Pierre 350.1.13.10 ity of [place] [id number] [facility] [place] [facility] [employer] [id number] [facility] [address] [place] 2020-03-19 2020-03-19 Outpatient R FLETCHER [facility] [id number] Univers 00:00:00 00:00:00 MAE ity [facility] 2020-03-19 2020-03-19 [facility]phone [facility] 1.2.840.114 [id number] Univers 00:00:00 00:00:00 Mae AYALA 350.1.13.10 ity of [place] [id number] [facility] [place] [facility] [place] [id number] [facility] [address] [place] DIABETES CLINIC 2020-03-12 2020-03-12 Fiber Locking Supervisor Vtc-Lab [facility] 1.2.840.114 [id number] Univers 13:39:52 13:54:52 Visit Mea Bynum 350.1.13.1 0 ity of [place] 4.2.7.2.686 [facility] [place] [facility] [place] [phone] [facility] [address] [place] DIABETES CLINIC 2020-03-12 2020-03-12 Office [facility] [id number] Univers 12:48:36 13:35:27 Visit Mae AYALA 350.1.13.10 ity [place] [id number] [facility] AND [place] [address] [place] DIABETES CLINIC 2020-03-12 2020-03-12 Outpatient R FLETCHER [facility] [id number] Univers 13:00:00 13:00:00 MAE ennis [facility] 2020-03-12 2020-03-12 Fiber Locking Supervisor Pob, Adc Lab Main [facility] [id number] [id number] Univers 08:23:47 08:38:47 Visit Mae Bynum 350.1.13.10 [place] [phone] Ak dical nal [address] [place] [address] 2020-03-12 2020-03-12 Orders Doctor DORIE 1.2.840.114 [id number] Univers 00:00:00 00:00:00 Only Unassigned, BRETT 350.1.13.10 ity of [place] [facility] 4.2.7.2.686 Amadeo as [id number] [address] 2020-03-10 2020-03-10 Fiber Locking Supervisor 2, Adc Lab [facility] 1.2.840.114 [id number] Univers 13:07:04 13:22:04 Visit Mae Bynum 350.1.13.10 it[place] of [place] 4.2.7.2.[place] Profess[place] [phone] Ak dical nal [address] [place] [address] 2020-03-10 2020-03-10 Outpatient R FLETCHER [facility] [id number] Univers 13:00:00 13:00:00 MAE ity [facility] Orders Doctor DORIE 1.2.840.114 [id number] Univers 00:00:00 00:00:00 Only Unassigned, BRETT 350.1.13.10 ity of [place] [facility] 4.2.7.2.686 Amadeo as [id number] [address] Results Test Description Test Time Test Comments Results Result Comments Source POCT TEST 2022-02-11 14:59:00 Test Item Value Reference Range Interpretation Comme nts POCT PREG (test code = 1605) Negative On board controls acceptable with C Line (test code = 3574) Yes POCT PREG LOT # (test code = 3575) POCT [facility]REG TEST [facility] (test code = 3576[id number]00 Test Item Value Reference Range Interpretation Comments POCT PREG (test code = 1605) Negative On board controls acceptable with C Yes Line (test code = 3574) POCT PREG LOT # (test code = 3575) POCT PREG TEST DATE (test code = 3576) [facility]
[2022-04-03 20:51] LABS: Urine Blood Trace-intact (Negative); Urine Glucose Negative (Negative); Urine Protein Negative (Negative); Urine pH 6.5 (5.0-7.0)
[2022-04-03 21:16] LABS: Urine Bacteria <20 /HPF (<20); Urine Mucus Slight /HPF (None Seen); Urine RBC None Seen /HPF (None Seen)
[2022-04-03 21:24] LABS: Absolute Lymphocytes (CBC) 1.4 K/uL (0.7-4.9); Hematocrit 34.7 % (36.0-45.0); MCV 92.7 fL (80-100); RBC Red Blood Cell Count 3.74 M/uL (3.86-4.86)
[2022-04-03 21:37] LABS: Albumin 3.3 g/dL (3.4-5.0); Bilirubin Total 0.4 mg/dL (0.2-1.0); Potassium 3.7 mmol/L (3.5-5.1); Protein, Total 7.2 g/dL (6.4-8.2)
[2022-04-03] MEDS ORDERED: NA CHLORIDE 0.9% 1,000 ML ONE (21:54)
[2022-04-03] MEDS ORDERED: ONDANSETRON 4 MG/2 ML VIAL ONE (21:54)
[2022-04-03] MEDS ORDERED: MORPHINE 4 MG/ML SYR ONE (21:54)
--- NOTE | 2022-04-03 22:08 | RAD REPORT ---
EXAM DESCRIPTION: CTAbdomen Pelvis W Contrast - 04/03/2022 9:59 pm CLINICAL HISTORY: Abdominal pain. lower abdomen pain COMPARISON: Abdomen Pelvis W Contrast dated 08/24/2020; Abdomen Pelvis W Contrast dated 06/09/2020 ; Abdomen Pelvis W Contrast dated 12/30/2019 TECHNIQUE: Biphasic CT imaging of the abdomen and pelvis was performed with 100 ml non-ionic IV cont rast. All CT scans are performed using dose optimization technique as appropriate and may include automated exposure control or mA/KV adjustment according to patient size. FINDINGS: The lung bases are clear. The liver, spleen, pancreas, adrenal glands and kidneys are within normal limits. 20 mm left renal [address]. No bowel obstruction, free air, free fluid or abscess. Small fat containing umbilical hernia. The chantal endix is normal. No evidence of significant lymphadenopathy. IUD is noted in the uterus. No suspicious bony findings. IMPRESSION: No acute intra-abdominal or pelvic finding.
[2022-04-03] MEDS ORDERED: KETOROLAC 30 MG/ML INJ ONE (23:26)
--- NOTE | 2022-04-04 00:51 | ER ---
Nurse's Notes [facility] Name: Mary Jane Rodriguez Age: 31 yrs Sex: Female : 1990 Arrival Date: 04/03/2022 Time: 18:47 Bed 28 Private MD: Diagnosis: Female pelvic inflammatory disease, unspecified Presentation: 04/03 18:59 Chief complaint: Patient states: Pelvic pain and low back pain since Monday. Wheeler ll1 feverish, but didn't have thermometer. + nausea. No dysuria. Coronavirus screen: Vaccine status: Patient reports being unvaccinated. Client denies travel out of the [place] in the last 14 days. At this time, the client does not indicate any symptoms associated with coronavirus-19. Ebola Screen: Patient denies travel to an Ebola-affected area in the 21 days before illness onset. Initial Sepsis Screen: Does the patient meet any 2 criteria? No. Patient's initial sepsis screen is negative. Does the patient have a suspected source of infection? Yes: Acute abdominal pain. Risk Assessment: Do you want to hurt yourself or someone else? Patient reports no desire to harm self or others. Onset of symptoms was April 01, 2022. 18:59 Method Of Arrival: Ambulatory ll1 18:59 Acuity: BAILEY 3 ll1 Historical: - Allergies: 18:58 anxiety/depression; ll1 - PMHx: 18:53 cyst on kidneys; Kidney stones; PCOS; ll1 - PSHx: 18:58 section; ll1 - Immunization history:: Adult Immunizations up to date, Client reports having NOT received the Covid vaccine. - Social history:: Smoking status: Reported history of juuling and/or vaping. Screenin:[facility] ED Fall Risk Assessment (Adult) History of falling in the last 3 months, lg3 including since admission No falls in past 3 months (0 pts). Abuse screen: Denies threats or abuse. Denies injuries from another. Nutritional screening: No deficits noted. Tuberculosis screening: No symptoms or risk factors identified. Assessment: 21:55 General: Appears in no apparent distress. uncomfortable, Behavior is calm, cooperative. lg3 Pain: Complains of pain in pelvis Pain radiates to back. Neuro: No deficits noted. Almendarez Agitation-Sedation Scale (RASS): 0 - Alert and Calm Level of Consciousness is awake, alert, obeys commands, Oriented to person, place, time, situation. Cardiovascular: No deficits noted. Denies chest pain, shortness of breath, Capillary refill < 3 seconds Clubbing of nail beds is absent JVD is absent Patient's skin is warm and dry. Respiratory: No deficits noted. Airway is patent Trachea midline Respiratory effort is even, unlabored, Respiratory pattern is regular, symmetrical. GI: Abdomen is round non-distended, Reports lower abdominal pain. : No deficits noted. EENT: No deficits noted. No signs and/or symptoms were reported regarding the EENT system. Derm: No deficits noted. No signs and/or symptoms reported regarding the dermatologic system. Skin is intact, is healthy with good turgor, Skin is dry, Skin is normal. Musculoskeletal: No deficits noted. No signs and/or symptoms reported regarding the musculoskeletal system. Circulation, motion, and sensation intact. Range of motion: intact in all extremities. 23:27 Reassessment: Patient appears in no apparent distress at this time. No changes from lg3 previously documented assessment. Patient and/or family updated on plan of care and expected duration. Pain level reassessed. Patient is alert, oriented x 3, equal unlabored respirations, skin warm/dry/pink. Patient states symptoms have not improved. 04/04 00:48 Reassessment: Patient appears in no apparent distress at this time. No changes from lg3 previously documented assessment. Patient and/or family updated on plan of care and expected duration. Pain level reassessed. Patient is alert, oriented x 3, equal unlabored respirations, skin warm/dry/pink. Vital Signs: 04/03 18:59 BP 149 / 103; Pulse 116; Resp 18; Temp 98.1; Pulse Ox 100% ; Weight 70.76 kg; Height 5 ll1 ft. 4 in. (162.56 cm); Pain 9/10; 20:44 BP 135 / 88; Pulse 116; Resp 18; Temp 98.8(O); Pulse Ox 100% on R/A; ds4 23:27 BP 124 / 80; Pulse 101; Resp 18 S; Pulse Ox 100% on R/A; lg3 04/04 00:49 BP 126 / 82; Pulse 97; Resp 17 S; Pulse Ox 100% on R/A; lg3 04/03 18:59 Body Mass Index 26.78 (70.76 kg, 162.56 cm) ll1 ED Course: 04/03 18:47 Patient arrived in ED. am2 19:00 Triage completed. ll1 19:00 Arm band placed on. ll1 19:41 Shalom Downey PA is PHCP. cp 19:41 Shalom Will MD is Attending Physician. cp 21:03 Urine Microscopic Only Sent. ds4 21:12 Inserted saline lock: 22 gauge in right antecubital area, using aseptic technique. ds4 Blood collected. 21:55 Patient has correct armband on for positive identification. Placed in gown. Bed in low lg3 position. Call light in reach. Side rails up X 1. Client placed on continuous cardiac and pulse oximetry monitoring. NIBP monitoring applied. electronic device monitor on. Door closed. Noise minimized. Warm blanket given. Family accompanied patient. 21:59 CT Abd/Pelvis - IV Contrast Only In Process Unspecified. EDMS 23:00 US Transvaginal Study (Probe) In Process Unspecified. EDMS 23:20 Wet Prep Sent. lg3 23:20 GC (GONORR/CHLAMYDIA) Probe Sent. lg3 02 01:12 No provider procedures requiring assistance completed. IV discontinued, intact, lg3 bleeding controlled, No redness/swelling at site. Pressure dressing applied. Administered Medications: 04/03 21:54 Drug: Zofran (Ondansetron) 4 mg Route: IVP; Site: right antecubital; lg3 22:38 Follow up: Response: No adverse reaction lg3 21:54 Drug: morphine 4 mg Route: IVP; Infused Over: 4 mins; Site: right antecubital; lg3 22:38 Follow up: Response: No adverse reaction lg3 22:19 Drug: NS 0.9% 1000 ml Route: IV; Rate: 1 bolus; Site: right antecubital; lg3 23:26 Drug: Ketorolac 30 mg Route: IVP; Site: right antecubital; lg3 04/04 00:19 Follow up: Response: No adverse reaction lg3 01:00 Drug: Rocephin - (cefTRIAXone) 1 grams Route: IVPB; Infused Over: 30 mins; Site: right lg3 antecubital; 01:12 Follow up: Response: No adverse reaction; IV Status: Completed infusion; IV Intake: [id number] 01:00 Drug: Zithromax (azithromycin) 1 grams Route: PO; lg3 01:12 Follow up: Response: No adverse reaction lg3 Medication: 04/03 21:55 VIS not applicable for this client. lg3 Intake: 04/04 01:12 IV: 50ml; Total: 50ml. lg3 Outcome: 00:51 Discharge ordered by . cp 01:12 Discharged to home ambulatory. lg3 01:12 Condition: stable 01:12 Discharge instructions given to patient, Instructed on discharge instructions, follow up and referral plans. medication usage, Demonstrated understanding of instructions, follow-up care, medications, Prescriptions given X 4. 01:13 Patient left the ED. lg3 Signatures: Dispatcher [employer] EDMS Giacomo Mccall ds4 Shalom Downey PA PA cp Moreno, Amanda am2 Luz Maria Mark, RN RN lg3 Kelly Ramirez RN RN ll1 Corrections: (The following items were deleted from the chart) 04/03 18:59 18:53 Allergies: No Known Allergies; ll1 ll1 19:00 19:00 Arm band placed on Patient placed in an exam room, on a stretcher, ll1 ll1
--- NOTE | 2022-04-04 00:51 | EDPHYS ---
Physician Documentation [facility] Name: Mary Jane Rodriguez Age: 31 yrs Sex: Female : 1990 Arrival Date: 04/03/2022 Time: 18:47 Bed 28 Private MD: ZACHARIAH Physician Shalom Will HPI: 04/03 20:00 This 31 yrs old Female presents to ER via Ambulatory with complaints of kidney pain, cp Anxiety, Fever. 20:00 The patient presents with pelvic pain, that is located in/on the pelvic and left lower cp abdomen, the pain radiates to the left low back, the pain is described as constant. Onset: The symptoms/episode began/occurred 2 day(s) ago. Associated signs and symptoms: Pertinent positives: fever, Pertinent negatives: constipation, diarrhea, dysuria, hematuria, vaginal bleeding. Severity of symptoms: in the emergency department the symptoms are unchanged, despite home interventions. pain similar to kidney stone pain. Historical: - Allergies: 18:58 anxiety/depression; ll1 - PMHx: 18:53 cyst on kidneys; Kidney stones; PCOS; ll1 - PSHx: 18:58 section; ll1 - Immunization history:: Adult Immunizations up to date, Client reports having NOT received the Covid vaccine. - Social history:: Smoking status: Reported history of juuling and/or vaping. ROS: 20:05 Constitutional: Negative for chills, fever, poor PO intake. cp 20:05 Eyes: Negative for injury, pain, redness, and discharge. cp 20:05 ENT: Negative for drainage from ear(s), ear pain, sore throat, difficulty swallowing, difficulty handling secretions. 20:05 Cardiovascular: Negative for chest pain, palpitations. 20:05 Respiratory: Negative for cough, shortness of breath, wheezing. 20:05 Abdomen/GI: Positive for abdominal pain, nausea, of the suprapubic area and left lower quadrant, Negative for vomiting, diarrhea, constipation, anorexia, black/tarry stool, rectal bleeding. 20:05 Back: Positive for radiated pain, Negative for injury or acute deformity. 20:05 : Negative for hematuria, burning with urination, vaginal bleeding. 20:05 Skin: Negative for rash. 20:05 All other systems are negative. Exam: 20:10 Constitutional: The patient appears in no acute distress, alert, awake, non-toxic, well cp developed, well nourished, uncomfortable. 20:10 Head/Face: Normocephalic, atraumatic. cp 20:10 Eyes: Periorbital structures: appear normal, Conjunctiva: normal, no exudate, no injection, Sclera: no appreciated abnormality, Lids and lashes: appear normal, bilaterally. 20:10 ENT: External ear(s): are unremarkable, Nose: is normal, Mouth: Lips: moist, Oral mucosa: moist, Posterior pharynx: Airway: no evidence of obstruction, patent. 20:10 Chest/axilla: Inspection: normal. 20:10 Cardiovascular: Rate: tachycardic, Rhythm: regular, Edema: is not appreciated, JVD: is not appreciated. 20:10 Respiratory: the patient does not display signs of respiratory distress, Respirations: normal, no use of accessory muscles, no retractions, labored breathing, is not present, Breath sounds: are clear throughout, no decreased breath sounds, no stridor, no wheezing. 20:10 Abdomen/GI: Inspection: abdomen appears normal, Bowel sounds: active, all quadrants, Palpation: soft, in all quadrants, moderate abdominal tenderness, in the suprapubic area and left lower quadrant, rebound tenderness, is not appreciated, voluntary guarding, is elicited in the suprapubic area and left lower quadrant. 20:10 Back: CVA tenderness, is absent. 20:10 : Pelvic Exam: External exam: is normal, Speculum exam: no bleeding is noted, os that cp is closed, bimanual exam reveals cervical motion tenderness, left adnexal tenderness, no adnexal mass on right, no adnexal mass on left, discharge, white, the nurse was present for the exam. 20:10 Skin: no rash present. cp Vital Signs: 18:59 BP 149 / 103; Pulse 116; Resp 18; Temp 98.1; Pulse Ox 100% ; Weight 70.76 kg; Height 5 ll1 ft. 4 in. (162.56 cm); Pain 9/10; 20:44 BP 135 / 88; Pulse 116; Resp 18; Temp 98.8(O); Pulse Ox 100% on R/A; ds4 23:27 BP 124 / 80; Pulse 101; Resp 18 S; Pulse Ox 100% on R/A; lg3 04/04 00:49 BP 126 / 82; Pulse 97; Resp 17 S; Pulse Ox 100% on R/A; lg3 04/03 18:59 Body Mass Index 26.78 (70.76 kg, 162.56 cm) ll1 MDM: 04/03 19:41 Patient medically screened. cp 04/04 00:50 Data reviewed: vital signs, nurses notes, lab test result(s), radiologic studies, CT cp scan, ultrasound. 00:50 Differential diagnosis: elias infection, dysmenorrhea, ectopic , cp endometriosis, kidney stone, ovarian cyst, pelvic inflammatory disease, urinary tract infection, vaginosis. Consideration of Admission/Observation Escalation of care including admission/observation considered. I considered the following discharge prescriptions or medication management in the emergency department Medications were administered in the Emergency Department. See MAR. Counseling: I had a detailed discussion with the patient and/or guardian regarding: the historical points, exam findings, and any diagnostic results supporting the discharge/admit diagnosis, lab results, radiology results, the need for outpatient follow up, a family practitioner, to return to the emergency department if symptoms worsen or persist or if there are any questions or concerns that arise at home. Response to treatment: the patient's symptoms have markedly improved after treatment, and as a result, I will discharge patient. Special discussion: Based on the patient's Hx, exam, and Dx evaluation, there is no indication for emergent surgery or inpatient Tx. It is understood by the patient/guardian that if the Sx's persist or worsen they need to return immediately for re-evaluation. 04/03 20:51 Order name: Urine Dipstick-Ancillary; Complete Time: 20:58 EDMS 04/03 21:40 Interpretation: Normal except: UBLD Trace-intact; UESTR 1+. cp 04/03 20:52 Order name: Urine Microscopic Only; Complete Time: 21:40 ds4 04/03 20:59 Order name: CBC with Diff; Complete Time: 21:40 cp 04/03 21:40 Interpretation: Normal except: RBC 3.74; HGB 11.8; HCT 34.7. cp 04/03 20:59 Order name: CMP; Complete Time: 21:40 cp 04/03 22:24 Interpretation: Normal except: A/G 0.8; BUN 6; ALB 3.3; GLOB 3.9. cp 04/03 20:59 Order name: Lipase; Complete Time: 21:40 cp 04/03 20:59 Order name: CT Abd/Pelvis - IV Contrast Only; Complete Time: 22:16 cp 04/03 22:18 Order name: US Transvaginal Study (Probe); Complete Time: 22:22 cp 04/03 22:26 Order name: GC (GONORR/CHLAMYDIA) Probe cp 04/03 22:26 Order name: Wet Prep; Complete Time: 00:32 cp 04/03 20:59 Order name: IV Saline Lock; Complete Time: 21:03 cp 04/03 20:59 Order name: Labs collected and sent; Complete Time: 21:12 cp 04/03 20:59 Order name: Urine Dipstick-Ancillary (obtain specimen); Complete Time: 21:03 cp 04/03 20:59 Order name: Urine Test (obtain specimen); Complete Time: 21:03 cp 04/03 22:26 Order name: Pelvic Exam Setup; Complete Time: 23:22 cp Administered Medications: 04/03 21:54 Drug: Zofran (Ondansetron) 4 mg Route: IVP; Site: right antecubital; lg3 22:38 Follow up: Response: No adverse reaction lg3 21:54 Drug: morphine 4 mg Route: IVP; Infused Over: 4 mins; Site: right antecubital; lg3 22:38 Follow up: Response: No adverse reaction lg3 22:19 Drug: NS 0.9% 1000 ml Route: IV; Rate: 1 bolus; Site: right antecubital; lg3 23:26 Drug: Ketorolac 30 mg Route: IVP; Site: right antecubital; lg3 04/04 00:19 Follow up: Response: No adverse reaction lg3 01:00 Drug: Rocephin - (cefTRIAXone) 1 grams Route: IVPB; Infused Over: 30 mins; Site: right lg3 antecubital; 01:12 Follow up: Response: No adverse reaction; IV Status: Completed infusion; IV Intake: [id number] 01:00 Drug: Zithromax (azithromycin) 1 grams Route: PO; lg3 01:12 Follow up: Response: No adverse reaction lg3 Disposition Summary: 04/04/22 00:51 Discharge Ordered Location: Home cp Problem: new cp Symptoms: have improved cp Condition: Stable cp Diagnosis - Female pelvic inflammatory disease, unspecified cp Followup: cp - With: Private Physician - When: 2 - 3 days - Reason: Recheck today's complaints Discharge Instructions: - Discharge Summary Sheet cp - Pelvic Inflammatory Disease cp - Pelvic Pain, Female cp Forms: - Medication Reconciliation Form cp - Thank You Letter cp - Antibiotic Education cp - Prescription Opioid Use cp - Work release form lg3 Prescriptions: - Ibuprofen 800 mg Oral Tablet - take 1 tablet by ORAL route every 8 hours As needed take with food; 30 tablet; cp Refills: 0, Product Selection Permitted - Doxycycline Hyclate 100 mg Oral Tablet - take 1 tablet by ORAL route every 12 hours; 20 tablet; Refills: 0, Product cp Selection Permitted - Metronidazole 500 mg Oral Tablet - take 1 tablet by ORAL route every 8 hours; 30 tablet; Refills: 0, Product cp Selection Permitted - Tramadol 50 mg Oral Tablet - take 1 tablet by ORAL route every 8 hours as needed; 12 tablet; Refills: 0, cp Product Selection Permitted Signatures: Dispatcher [employer] EDMN Shalom Downey PA PA cp Luz Maria Mark RN RN lg3 Kelly Ramirez RN RN ll1 Corrections: (The following items were deleted from the chart) 04/03 18:59 18:53 Allergies: No Known Allergies; ll1 ll1 22:24 21:40 Normal except: BUN 6. cp cp
[2022-04-04] MEDS ORDERED: NA CHLORIDE 0.9% 50 ML ONE (00:55)
[2022-04-04] MEDS ORDERED: CEFTRIAXONE 1000 MG/VIAL ONE (00:55)
[2022-04-04] MEDS ORDERED: AZITHROMYCIN 250 MG TAB ONE (00:55)
[2022-04-04 01:17] VITALS: O2SAT 100
[2022-04-04 01:18] VITALS: TEMP 98.8
[2022-04-04 01:21] VITALS: BP 126/82
--- NOTE | 2022-04-04 14:25 | RAD REPORT ---
EXAM DESCRIPTION: Ultrasound Pelvis COMPARISON: None. CLINICAL HISTORY: [facility] lower abdomen pain TECHNIQUE: Transabdominal and transvaginal sonographic images of the pelvis were obtained. Color Doppler was also utilized. FINDINGS: Uterus: The uterus measures 8.6 x 5.1 x 5.9 cm and is in a normal position. Endometrial th ickness is [address] Right Adnexa: The right ovary measures 3.8 x 2.2 x 2.7 cm and is normal. Normal vascularity. Left Adnexa: The left ovary measures 2.8 x 1.3 x 1.9 cm and is normal. Normal vascularity. Peritoneal cavity: Trace free fluid is seen in the cul-de-sac. IMPRESSION: No acute findings of the pelvis. Electronically signed by: Giacomo Gan MD 04/03/2022 11:52 PM PRINCIPAL EXAMINER Due to temporary technical issues with the PACS/Fluency reporting system, reports are being signed by the in house radiologists without review as a courtesy to insure prompt reporting. The interpreting radiologist is fully responsible for the content of the report.
== END 2022-04-04 01:13 | disposition home or self-care (01) ==
LOC: ER 18:47
DX: N73.9 Female pelvic inflammatory disease, unspecified (principal)
CPT/HCPCS: 36415; 74177; 76830; 80053; 81003; 81015; 83690; 85025; 87210; 87490; 87590; J2405; J7030; Q9967